=== PATIENT | female | born 1990 | race Two or more races ===

== ENCOUNTER 2019-12-02 14:32 | Outpatient (REF) | payer MEDICAID, SELFPAY ==
[2019-12-02 15:36] LABS: MANUAL DIFF FLAG NO
[2019-12-02 15:39] LABS: Basophils Percent Auto 0.7 % (0-2); Eosinophils Absolute Auto 0.1 X10*3/uL (0.0-0.4); Eosinophils Percent Auto 0.8 % (0-4); Hematocrit 38.7 % (37-47); Hemoglobin 12.5 g/dl (12.0-16.0); Imm Gran Abs Auto 0.02 X10*3/uL (0.00-0.03); Imm Gran Pct Auto 0.3 % (0.0-0.4); Lymphocytes Absolute Auto 2.2 X10*3/uL (1.2-4.9); Lymphocytes Percent Auto 36.6 % (20-40); Mean Corpuscular HGB Conc 32.3 g/dl (31.0-35.0); Mean Corpuscular Hemoglobin 27.7 pg (27.0-33.0); Mean Corpuscular Volume 85.8 fL (80-98); Mean Platelet Volume 11.5 fL (9.4-12.3); Monocytes Absolute Auto 0.4 X10*3/uL (0.1-1.2); Monocytes Percent Auto 6.8 % (2-11); Neutrophils Absolute Auto 3.3 X10*3/uL (2.0-8.3); Neutrophils Percent Auto 54.8 % (45-73); Platelet Count 267 X10*3/uL (160-400); Red Blood Count 4.51 X10*6/uL (4.20-5.50); Red Cell Distribution Width 13.3 % (11.0-16.0)
[2019-12-02 16:01] LABS: Alanine Aminotransferase 13 U/L (0-31); Albumin Level 4.6 g/dL (3.5-5.0); Alkaline Phosphatase 61 U/L (39-117); Anion Gap 12 (12-20); Aspartate Amino Transferase 19 U/L (5-31); Bilirubin Total 0.5 mg/dL (0.0-1.0); Blood Urea Nitrogen 9 mg/dL (9-16); Calcium 9.3 mg/dL (8.4-10.2); Carbon Dioxide 26 mmol/L (22-29); Chloride 104 mmol/L (96-108); Cholesterol 163 mg/dL; Estimated Glomerular Filt Rate > 60; Glucose Random 82 mg/dL (60-115); HDL Cholesterol 51 mg/dL; LDL Cholesterol Calculated 103 mg/dl; Potassium 3.8 mmol/l (3.3-5.1); Sodium 138 mmol/L (135-145); Total Protein 7.5 g/dL (6.5-8.0); Triglycerides 48 mg/dL
[2019-12-02 16:22] LABS: Ferritin 24 ng/mL (10-122); Thyroid Stimulating Hormone 1.21 mIU/mL (0.32-4.0)
[2019-12-03 06:16] LABS: Lutenizing Hormone 12.7 mIU/mL; Prolactin 3.2 ng/mL
[2019-12-03 08:23] LABS: Estimated Average Glucose 103 mg/dL; Hemoglobin A1c % 5.2 %
[2019-12-06 23:02] LABS: Estradiol Free 1.15 pg/mL; Estradiol, Ultrasensitive 50 pg/mL
[2019-12-07 13:31] LABS: Progesterone <0.1 ng/mL; Testosterone, Total 50 ng/dL (2-45)
== END 2019-12-02 14:33 | disposition home or self-care (01) ==
LOC: HO.LAB 14:32
PROVIDERS: PCP Internal Medicine; Visit Provider Internal Medicine
DX: F12.288 Cannabis dependence with other cannabis-induced disorder (principal); F41.8 Other specified anxiety disorders; M54.2 Cervicalgia; N93.8 Other specified abnormal uterine and vaginal bleeding; R87.619 Unspecified abnormal cytological findings in specimens from cervix uteri
CPT/HCPCS: 36415; 80053; 80061; 82670; 82728; 83001; 83002; 83036; 84144; 84146; 84402; 84403; 84443; 85025

== ENCOUNTER 2020-05-05 10:58 | Outpatient (REF) | payer MEDICAID, SELFPAY ==
[2020-05-05 13:33] LABS: Hematocrit 35.3 % (37-47); Hemoglobin 11.7 g/dl (12.0-16.0); Mean Corpuscular HGB Conc 33.1 g/dl (31.0-35.0); Mean Corpuscular Hemoglobin 28.2 pg (27.0-33.0); Mean Corpuscular Volume 85.1 fL (80-98); Mean Platelet Volume 11.3 fL (9.4-12.3); Platelet Count 267 X10*3/uL (160-400); Red Blood Count 4.15 X10*6/uL (4.20-5.50); Red Cell Distribution Width 13.6 % (11.0-16.0); White Blood Count 4.9 X10*3/uL (4.8-10.8)
[2020-05-05 14:26] LABS: HCG Quantitative < 2 mIU/mL; Thyroid Stimulating Hormone 1.08 uIU/mL (0.32-4.0)
[2020-05-06 08:09] LABS: Syphilis Screen Nonreactive (Nonreactive)
[2020-05-06 08:23] LABS: HIV AB/AG Nonreactive (Nonreactive); HIV Num 1 0.08 S/CO (0.00-0.99)
[2020-05-06 08:41] LABS: ~HepC Num1 0.13 S/CO (0.00-0.79); ~Hepatitis C Antibody Nonreactive (Nonreactive)
[2020-05-06 09:05] LABS: BV Int Neg Control Negative (Negative); BV Int Pos Control Positive (Positive)
[2020-05-06 09:18] LABS: CT PCR NOT DETECTED (Not Detect.); NG PCR NOT DETECTED (Not Detect.)
[2020-05-06 09:47] LABS: Prolactin 5.6 ng/mL
[2020-05-06 10:32] LABS: DHEA Sulfate 210 mcg/dL (18-391)
[2020-05-10 12:36] LABS: Testosterone, Free 3.5 pg/mL (0.1-6.4); Testosterone, Total 29 ng/dL (2-45)
[2020-05-13 03:26] LABS: HPV 16 RNA NOT DETECTED (NOT DETECTED); HPV mRNA E6/E7 rflx Detected (Not Detected)
== END 2020-05-05 10:59 | disposition home or self-care (01) ==
LOC: HO.LAB 10:58
PROVIDERS: PCP Internal Medicine; Visit Provider Advanced Practice Midwife
DX: Z01.419 Encounter for gynecological examination (general) (routine) without abnormal findings (principal); R10.2 Pelvic and perineal pain; N92.6 Irregular menstruation, unspecified; Z20.2 Contact with and (suspected) exposure to infections with a predominantly sexual mode of transmission; N64.4 Mastodynia; L68.0 Hirsutism; Z85.41 Personal history of malignant neoplasm of cervix uteri
CPT/HCPCS: 36415; 82627; 83498; 84146; 84402; 84403; 84443; 84702; 85027; 86780; 86803; 87389; 87480; 87491; 87510; 87591; 87624; 87625; 87660; 88141; 88142

== ENCOUNTER 2020-05-12 11:17 | Outpatient (REF) | payer MEDICAID, SELFPAY ==
--- NOTE | ~2020-05-12 | US_ITS ---
EXAMINATION:US transvaginal, US pelvic complete CLINICAL INFORMATION: Reason for Exam R10.2 - Pelvic and perineal pain COMPARISON: No priors available. LMP: 04/12/2020 FINDINGS: UTERUS: The uterus is anteverted. Size: 6 x 3.1 x 3.9 cm. Uterine mass: There is no uterine mass. Cervix: Grossly unremarkable. Endometrium: No ultrasound evidence of endometrial lesion. endometrial thickness measures 0.5 cm ADNEXA: Normal Right ovary: Normal in size. There are ovarian follicles. Left ovary: Normal in size. There are ovarian follicles. Doppler exam: Normal Doppler flow identified in both ovaries. FREE FLUID: Trace amount of free fluid. OTHER FINDINGS: None US/US pelvic complete IMPRESSION: Normal pelvic ultrasound.
--- NOTE | ~2020-05-12 | US_ITS ---
EXAMINATION:US transvaginal, US pelvic complete CLINICAL INFORMATION: Reason for Exam R10.2 - Pelvic and perineal pain COMPARISON: No priors available. LMP: 04/12/2020 FINDINGS: UTERUS: The uterus is anteverted. Size: 6 x 3.1 x 3.9 cm. Uterine mass: There is no uterine mass. Cervix: Grossly unremarkable. Endometrium: No ultrasound evidence of endometrial lesion. endometrial thickness measures 0.5 cm ADNEXA: Normal Right ovary: Normal in size. There are ovarian follicles. Left ovary: Normal in size. There are ovarian follicles. Doppler exam: Normal Doppler flow identified in both ovaries. FREE FLUID: Trace amount of free fluid. OTHER FINDINGS: None US/US transvaginal IMPRESSION: Normal pelvic ultrasound.
== END 2020-05-12 11:18 | disposition home or self-care (01) ==
LOC: HO.US 11:17
PROVIDERS: Visit Provider Advanced Practice Midwife
DX: R10.2 Pelvic and perineal pain (principal)
CPT/HCPCS: 76830; 76856

== ENCOUNTER → 2020-05-14 09:13 | Outpatient (BNVA) | payer MEDICAID, SELFPAY | PROVIDERS: PCP Internal Medicine; Visit Provider Advanced Practice Midwife | DX: Z71.2 Person consulting for explanation of examination or test findings (principal); D64.9 Anemia, unspecified; R10.2 Pelvic and perineal pain | CPT/HCPCS: 99212 ==

== ENCOUNTER 2020-06-15 11:25 | Outpatient (REF) | payer MEDICAID, SELFPAY ==
[2020-06-15 12:28] LABS: MANUAL DIFF FLAG NO
[2020-06-15 12:36] LABS: Basophils Percent Auto 0.8 % (0-2); Eosinophils Absolute Auto 0.1 X10*3/uL (0.0-0.4); Eosinophils Percent Auto 2.6 % (0-4); Hemoglobin 12.4 g/dl (12.0-16.0); Lymphocytes Percent Auto 41.2 % (20-40); Mean Corpuscular HGB Conc 31.8 g/dl (31.0-35.0); Mean Corpuscular Hemoglobin 27.2 pg (27.0-33.0); Mean Corpuscular Volume 85.5 fL (80-98); Mean Platelet Volume 11.6 fL (9.4-12.3); Monocytes Absolute Auto 0.6 X10*3/uL (0.1-1.2); Monocytes Percent Auto 11.9 % (2-11); Neutrophils Absolute Auto 2.2 X10*3/uL (2.0-8.3); Neutrophils Percent Auto 43.5 % (45-73); Platelet Count 269 X10*3/uL (160-400); Red Blood Count 4.56 X10*6/uL (4.20-5.50); Red Cell Distribution Width 13.6 % (11.0-16.0)
[2020-06-15 12:37] LABS: Glucose Urine UA NEG (NEG); Leukocyte Esterase Urine NEG (NEG); Nitrite Urine NEG (NEG); PH 7.5 (5.0-8.0); Urine Blood 1+ (NEG); Urine Ketones NEG (NEG); Urine Protein NEG (NEG-TRACE)
[2020-06-15 12:38] LABS: Appearance Urine HAZY; Color Urine YELLOW
[2020-06-15 12:51] LABS: Squamous Epithelial Cell Urine 2+ /LPF; WBC Urine 0 /HPF (0-4)
[2020-06-15 13:28] LABS: Ferritin 20 ng/mL (10-122); Thyroid Stimulating Hormone 0.83 uIU/mL (0.32-4.0)
[2020-06-15 13:53] LABS: Vitamin B12 257 pg/mL (200-900)
== END 2020-06-15 11:26 | disposition home or self-care (01) ==
LOC: HO.LAB 11:25
PROVIDERS: Absent Provider Advanced Practice Midwife; PCP Internal Medicine; Visit Provider Internal Medicine
DX: D50.8 Other iron deficiency anemias (principal); R42 Dizziness and giddiness; R53.83 Other fatigue; R63.4 Abnormal weight loss
CPT/HCPCS: 36415; 81001; 82607; 82728; 84443; 85025

== ENCOUNTER 2020-06-19 08:07 | Outpatient (REF) | payer MEDICAID, SELFPAY ==
[2020-06-19 09:55] LABS: Hematocrit 37.1 % (37-47); Hemoglobin 11.8 g/dl (12.0-16.0); Mean Corpuscular HGB Conc 31.8 g/dl (31.0-35.0); Mean Corpuscular Hemoglobin 27.3 pg (27.0-33.0); Mean Corpuscular Volume 85.9 fL (80-98); Mean Platelet Volume 11.1 fL (9.4-12.3); Platelet Count 261 X10*3/uL (160-400); Red Blood Count 4.32 X10*6/uL (4.20-5.50); Red Cell Distribution Width 13.4 % (11.0-16.0); White Blood Count 4.8 X10*3/uL (4.8-10.8)
== END 2020-06-19 08:08 | disposition home or self-care (01) ==
LOC: HO.LAB 08:07
PROVIDERS: PCP Internal Medicine; Visit Provider Advanced Practice Midwife
DX: N93.9 Abnormal uterine and vaginal bleeding, unspecified (principal); Z30.013 Encounter for initial prescription of injectable contraceptive
CPT/HCPCS: 36415; 81025; 85027; 96372; 99212; J1050

== ENCOUNTER → 2020-09-14 13:00 | Outpatient (BNVA) | payer MEDICAID, SELFPAY | PROVIDERS: PCP Internal Medicine; Visit Provider Advanced Practice Midwife | DX: Z30.42 Encounter for surveillance of injectable contraceptive (principal) | CPT/HCPCS: 96372; 99211 ==

== ENCOUNTER 2020-09-17 13:37 | Emergency (ER) | payer MEDICAID, SELFPAY ==
--- NOTE | ~2020-09-17 | US_ITS ---
EXAMINATION: US VENOUS WITH DOPPLER UPPER EXTREMITY, RIGHT CLINICAL INFORMATION: Swelling and pain. COMPARISON: None TECHNIQUE: Ultrasound of the upper extremity is performed using compression sonography and color and pulse Doppler flow with assessment of augmentation of flow. There is also imaging and Doppler assessment of the jugular and subclavian veins. Spectral analysis with color-flow imaging is performed. FINDINGS: Respiratory variation, normal compression, and augmented flow are noted throughout the upper extremity including the axillary, brachial, cubital, and radial and ulnar veins. There is normal flow in the internal jugular and subclavian veins. There is no visible deep or superficial thrombophlebitis. If the patient's symptoms progress, a followup ultrasound in 5 -7 days might be of value to exclude proximal propagation from a nonvisualized distal arm vein. US/US venous duplex UE RT IMPRESSION: No DVT demonstrated in the right upper extremity.
[2020-09-17 13:51] VITALS: BP 121/68; PULSE 83; RESP 16; TEMP 36.6; O2SAT 98; BMI 25.0
--- NOTE | 2020-09-17 15:02 | ED_ITS ---
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 Also c/o right upper shoulder pain with no injury or trauma. No radiation pain. No numbness or tingling. No headache or neck pain or chest pain. Related Data Previous Rx's Medication Instructions Recorded vitamin with calcium 1 tab PO DAILY #30 tab 05/14/20 no.72-iron 27 mg-folic acid 1 mg tablet ( Vitamins Plus Low Iron) medroxyprogesterone 150 mg/mL 150 mg IM [id number] #1 ml 06/19/20 intramuscular suspension (Depo-Provera) cyclobenzaprine 10 mg tablet 10 mg PO TID PRN #10 tab 09/17/20 naproxen 500 mg tablet 500 mg PO BID PRN #20 tab 09/17/20 Allergies Allergy/AdvReac Type Severity Reaction Status Date / Time No Known Allergies Allergy Verified 06/19/20 08:28 Review of Systems Review of Systems: Yes all other systems are reviewed and are negative Constitutional: Constitutional: Reports no additional constitutional complaints, Denies body ache(s), Denies chills, Denies fever(s), Denies headache(s) and Denies weakness Eyes: Eyes: Reports no additional eye complaints and Denies change in vision ENT: Reports system reviewed and no additional complaints, except as documented, Denies dizziness, Denies headache(s), Denies nasal congestion, Denies nasal discharge and Denies neck pain Cardiovascular: Cardiovascular: Reports no additional cardiovascular complaints, Denies chest pain, Denies leg edema and Denies dyspnea Respiratory: Respiratory: Reports no additional respiratory complaints, Denies cough and Denies dyspnea Gastrointestinal: Gastrointestinal: Reports no additional gastrointestinal complaints, Denies abdominal pain, Denies diarrhea, Denies nausea and Denies vomiting Genitourinary: Genitourinary: Reports no additional female genitourinary comp laints and Denies urinary incontinence Musculoskeletal: Musculoskeletal: Reports no additional musculoskeletal complaints, Denies back pain, Denies arthralgias, Denies joint swelling, Denies neck pain, Denies numbness and Denies tingling Integumentary/Breasts: Skin/Breast: Reports system reviewed and no additional complaints, except as docu, Reports swelling and Denies rash Neurologic: Reports system reviewed and no additional complaints, except as documented, Denies Abnormal speech present, Denies dizziness, Denies headache(s), Denies numbness, Denies tingling and Denies weakness PMFSH Past Medical History Attestation statement: The following information was validated with the patient. Source: old records reviewed and nursing notes reviewed Medical History Cervical cancer Family History Family History Maternal Uncle FH: kidney cancer Social History Social History Alcohol intake: never Substance Use Type: Marijuana Advance Directives: No Advance Directives Information Provided: No Patient : No Gender identity: female Physical Exam Vital Signs: Vital Signs: Last Vital Signs Temp 98 F 09/17/20 13:51 Pulse 83 09/17/20 13:51 Resp 16 09/17/20 13:51 BP 121/68 09/17/20 13:51 Pulse Ox 98 09/17/20 13:51 Body Mass Index 25.0 Const: General: cooperative, healthy appearing, comfortable and no acute distress Orientation/consciousness: patient oriented x3 Limitations: no limitations HENMT: Head: Yes normal to inspection Ears: hearing grossly normal bilaterally General nose exam: Normal external nose present Face and sinus: Yes normal facial exam Mouth: Normal oral and palatal mucosa present Throat: Yes posterior oropharynx normal Eyes: General: appearance normal, both eyes and all related structures Pupils: Equal, round and reactive pupils present Neck: Other: Tenderness over the right trapezius with no cervical midline tenderness, step-offs or deformities. Palpable muscle spasm noted Neck: Yes normal visual inspection Chest: Chest palpation & inspection: normal inspection of the chest Resp: Effort & Inspection: normal respiratory effort Auscultation: clear to auscultation bilaterally Cardio: Rate: regular rate Rhythm: regular rhythm Peripheral pulses: Peripheral pulses 2+ throughout GI: Inspection: Yes normal to inspection Palpation (GI): Soft to palpation and nontender Auscultation: normal bowel sounds Back/Spine/Pelvis: Thoracic/Lumbar Spine: thoracic and lumbar spine normal to inspection Skin: General skin exam: no rashes or lesions noted Neuro: General: patient oriented x3, no focal motor deficits and normal sensation to monofilament Cranial nerves: Yes Equal, round and reactive pupils present Cognition (Neuro): normal cognition Speech: No Abnormal speech present Gait exam (Neuro): Normal gait present Motor exam (neuro): 5/5 motor strength present throughout Extrem: Other: On the volar aspect of the right forearm there are 2 areas of swelling which are firm, nontender. No associated redness or fluctuance Mild swelling noted. Distal pulses palpated General: Yes normal to inspection Course Course Course Narrative: 30-year-old female here with right trapezius tenderness with muscle spasm. Likely muscle strain. Also 2 areas of swelling over the right forearm. Local swelling. Question lipoma. Patient concerned for DVT. Will check US. 170-ultrasound negative for DVT. Exam is more consistent with lipomas over the forearm. Will have her follow up with surgery as desired for further eval. Reviewed worrisome signs and symptoms of when to return to the emergency department. Comfortable discharge home. MDM - Extremity (Nontraumatic) Medical Records Attestation: I reviewed the patient's medical records. Lab Data Attestation: I reviewed the patient's lab results. Imaging Data UE US: Attestation: I personally reviewed and interpreted this imaging study as follows: Radiologist's impression: FINDINGS: Respiratory variation, normal compression, and augmented flow are noted throughout the upper extremity including the axillary, brachial, cubital, and radial and ulnar veins. There is normal flow in the internal jugular and subclavian veins. There is no visible deep or superficial thrombophlebitis. If the patient's symptoms progress, a followup ultrasound in 5 -7 days might be of value to exclude proximal propagation from a nonvisualized distal arm vein. US/US venous duplex UE RT IMPRESSION: No DVT demonstrated in the right upper extremity. Discharge Plan Discharge Clinical Impression: Lipoma, Muscle spasm Patient Disposition: Home, Self-Care Instructions: Muscle Spasm (ED), Lipoma (ED) Additional Instructions: Heat to the area gentle stretching Your ultrasound shows no blood clots Prescriptions: New cyclobenzaprine 10 mg tablet 10 mg PO TID PRN (Reason: muscle spasm) Qty: 10 RF: 0 naproxen 500 mg tablet 500 mg PO BID PRN (Reason: pain) Qty: 20 RF: 0 No Action medroxyprogesterone [Depo-Provera] 150 mg/mL suspension 150 mg IM [id number] Qty: 1 RF: 3 Vitamin Plus Low Iron 27 mg iron- 1 mg tablet 1 tab PO DAILY Qty: 30 RF: 11 Referrals: Mahnaz Villar MD [Primary Care Provider] - 2 days Fredrick Shoemaker MD [Physician] - 2 days Stand Alone Forms: Work/School Release Interventions: ED Discharge Assessment Last Done: 09/17/20 17:19 Discharge Date/Time: 09/17/20 17:20
[2020-09-17] MEDS: Ibuprofen 600 MG TABLET PO (15:33)
[2020-09-17] MEDS: Cyclobenzaprine HCl 10 MG TABLET PO (15:33)
== END 2020-09-17 17:20 | disposition home or self-care (01) ==
PROVIDERS: Emergency Provider Emergency Medicine; PCP Internal Medicine
DX: M25.511 Pain in right shoulder (principal); D17.21 Benign lipomatous neoplasm of skin and subcutaneous tissue of right arm; R60.0 Localized edema; Z79.899 Other long term (current) drug therapy
CPT/HCPCS: 93971; 99283

== ENCOUNTER → 2020-10-12 15:03 | Outpatient (BNVA) | payer MEDICAID, SELFPAY | PROVIDERS: Visit Provider Advanced Practice Midwife | DX: Z30.42 Encounter for surveillance of injectable contraceptive (principal); R39.15 Urgency of urination; Z86.2 Personal history of diseases of the blood and blood-forming organs and certain disorders involving the immune mechanism | CPT/HCPCS: 99212 ==

== ENCOUNTER 2020-11-04 11:07 | Outpatient (REF) | payer MEDICAID, SELFPAY ==
[2020-11-04 13:51] LABS: Appearance Urine CLEAR; Color Urine YELLOW; Glucose Urine UA NEG (NEG); Leukocyte Esterase Urine NEG (NEG); Nitrite Urine NEG (NEG); Specific Gravity - Urine 1.015 (1.005-1.025); Urine Blood NEG (NEG); Urine Ketones NEG (NEG); Urine Protein NEG (NEG-TRACE)
[2020-11-04 14:14] LABS: Hematocrit 38.2 % (37-47); Hemoglobin 12.4 g/dl (12.0-16.0); Mean Corpuscular HGB Conc 32.5 g/dl (31.0-35.0); Mean Corpuscular Hemoglobin 27.3 pg (27.0-33.0); Mean Corpuscular Volume 84.1 fL (80-98); Mean Platelet Volume 11.1 fL (9.4-12.3); Platelet Count 340 X10*3/uL (160-400); Red Blood Count 4.54 X10*6/uL (4.20-5.50); Red Cell Distribution Width 13.8 % (11.0-16.0); White Blood Count 5.7 X10*3/uL (4.8-10.8)
[2020-11-04 14:26] LABS: HCG Quantitative < 2 mIU/mL
== END 2020-11-04 11:08 | disposition home or self-care (01) ==
LOC: HO.LAB 11:07
PROVIDERS: PCP Internal Medicine; Visit Provider Advanced Practice Midwife
DX: N91.2 Amenorrhea, unspecified (principal); R39.15 Urgency of urination; Z32.02 Encounter for pregnancy test, result negative; Z86.2 Personal history of diseases of the blood and blood-forming organs and certain disorders involving the immune mechanism
CPT/HCPCS: 36415; 81003; 81025; 84702; 85027; 99212

== ENCOUNTER 2020-11-25 14:04 | Outpatient (REF) | payer MEDICAID, SELFPAY ==
[2020-11-26 02:51] LABS: CT PCR NOT DETECTED (Not Detect.); NG PCR NOT DETECTED (Not Detect.)
[2020-11-26 10:39] LABS: BV Int Neg Control Negative (Negative); BV Int Pos Control Positive (Positive)
== END 2020-11-25 14:05 | disposition home or self-care (01) ==
LOC: HO.LAB 14:04
PROVIDERS: PCP Internal Medicine; Visit Provider Advanced Practice Midwife
DX: N92.1 Excessive and frequent menstruation with irregular cycle (principal); R87.610 Atypical squamous cells of undetermined significance on cytologic smear of cervix (ASC-US); R87.810 Cervical high risk human papillomavirus (HPV) DNA test positive; N39.41 Urge incontinence; N89.8 Other specified noninflammatory disorders of vagina; Z20.2 Contact with and (suspected) exposure to infections with a predominantly sexual mode of transmission
CPT/HCPCS: 81003; 81025; 87480; 87491; 87510; 87591; 87660; 99212

== ENCOUNTER → 2020-12-09 08:49 | Outpatient (BNVA) | payer MEDICAID, SELFPAY | PROVIDERS: Visit Provider Advanced Practice Midwife | DX: Z30.42 Encounter for surveillance of injectable contraceptive (principal) | CPT/HCPCS: 96372 ==

== ENCOUNTER 2020-12-14 22:38 | Emergency (ER) | payer MEDICAID, SELFPAY ==
--- NOTE | ~2020-12-14 | XR_ITS ---
EXAMINATION: XR ELBOW, LEFT CLINICAL INFORMATION: Pulling injury, now with pain COMPARISON: None TECHNIQUE: AP, lateral, and oblique views of the left elbow. FINDINGS: Osseous alignment is anatomic. No acute fracture is seen. Faint calcific density adjacent to the olecranon may reflect calcific tendinitis. No significant effusion. XR/XR elbow LT min 3V IMPRESSION: No acute findings.
[2020-12-14 22:41] VITALS: BP 128/89; PULSE 76; RESP 18; TEMP 36.8; O2SAT 99; BMI 26.4
--- NOTE | 2020-12-14 22:56 | ED.UPPEXIN ---
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 She denies any other injuries complaints or concerns at this time. MD complaint: injury to: left and elbow Onset (ago): hour(s) (A few hours prior to arrival) Other Extremity Injury: left: elbow Other injuries: none Place: work Severity: moderate Relieving factors: none Exacerbating factors: movement of extremity (And palpation) Context: other (Pulling mechanism injury) Associated symptoms: denies other symptoms Treatments prior to arrival: cold therapy Related Data Previous Rx's Medication Instructions Recorded vitamin with calcium 1 tab PO DAILY #30 tab 05/14/20 no.72-iron 27 mg-folic acid 1 mg tablet ( Vitamins Plus Low Iron) medroxyprogesterone 150 mg/mL 150 mg IM [id number] #1 ml 06/19/20 intramuscular suspension (Depo-Provera) cyclobenzaprine 10 mg tablet 10 mg PO TID PRN #10 tab 09/17/20 naproxen 500 mg tablet 500 mg PO BID PRN #20 tab 09/17/20 metronidazole 0.75 % vaginal gel 1 appful VAGINAL BEDTIME 5 Days 12/09/20 (Metrogel Vaginal) #70 g acetaminophen 300 mg-codeine 30 mg 1 tab PO Q8H PRN #14 tab 12/14/20 tablet cyclobenzaprine 10 mg tablet 10 mg PO Q8H PRN #14 tab 12/14/20 ibuprofen 800 mg tablet 800 mg PO Q8H PRN #14 tab 12/14/20 Allergies Allergy/AdvReac Type Severity Reaction Status Date / Time No Known Allergies Allergy Verified 11/25/20 14:17 Review of Systems Review of Systems: Constitutional : No Weight loss, No Fever, No Chills, No Night Sweats, No Fatigue, No Malaise ENT/Mouth : No Hearing loss, No Ear Pain, No Nasal Congestion, No Sinus Pain, No Hoarseness, No sore throat, No Rhinorrhea, No Swallowing Difficulty Eyes: No Eye Pain, No Swelling, No Redness, No Foreign Body, No Discharge, No Vision Changes Cardiovascular : No Chest Pain, No SOB, No Dyspnea on Exertion, No Orthopnea, No Edema, No Palpitations Respiratory : No Cough, No Sputum, No Wheezing, No Smoke Exposure, No Dyspnea Gastrointestinal : No Nausea, No Vomiting, No Diarrhea, No Constipation, No abdominal Pain, No Hematochezia, No Melena Genitourinary : no irregular bleeding, No Dysuria, No Urinary Frequency, No Hematuria, No Urinary Incontinence, No Urgency, No Flank Pain, No Urinary Flow Changes, No Hesitancy Musculoskeletal : Positive left elbow joint pain, No Myalgias, No Joint Swelling Skin : No Skin Lesions, No rash Neuro : No Weakness, No Numbness, No Paresthesias, No Loss of Consciousness, No Dizziness, No Headache Psych : No Anxiety/Panic, No Depression, No SI/HI/AH/VH, No Social Issues, Heme/Lymph: No Bruising, No Bleeding,No Lymphadenopathy Endocrine : No Polyuria, No Polydipsia, No Temperature Intolerance Yes all other systems are reviewed and are negative [facility] Past Medical History Attestation statement: The following information was validated with the patient. Medical History Cervical cancer Family History Family History Maternal Uncle FH: kidney cancer Social History Social History Alcohol intake: never Substance Use Type: Marijuana Advance Directives: No Advance Directives Information Provided: No Patient : No Gender identity: Female Physical Exam Vital Signs: Vital Signs: Last Vital Signs Temp 98.3 F 12/14/20 22:41 Pulse 76 12/14/20 22:41 Resp 18 12/14/20 22:41 BP 128/89 12/14/20 22:41 Pulse Ox 99 12/14/20 22:41 Body Mass Index 26.4 vital signs have been reviewed as normal and appeared to be correct. Blood pressure normal Heart rate normal. Respiration rate normal. Temperature normal. Oxygen saturation normal. Appearance: Alert. Oriented X3. No acute distress. Head: Normal external exam. Normocephalic. Atraumatic. Eyes: PERRLA. EOMI. Conjunctiva and sclera normal. Eyelids normal. ENT: Pharynx normal. Uvula midline. Moist mucous membranes. Neck: Normal inspection. Neck supple. FROM. CVS: Normal heart rate and rhythm. Respiratory: No respiratory distress. Painless inspiration. Skin: Skin warm and dry. Normal skin color. Normal skin turgor. No rashes/lesions/lacerations noted. Extremities: Patient with tenderness up patient to left elbow at the posterior olecranon aspect of the elbow with mild soft tissue swelling. Patient has full range of motion. No obvious deformities. No obvious ligamentous or tendon injury. No upper extremity edema noted. Otherwise all other Extremities exhibit normal range of motion and nontender. Neuro: Oriented X 3. No motor deficit. No sensory deficit. Reflexes normal. Normal steady gait. No focal neuro deficits noted. Vascular: + radial pulses Normal cap refill. 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 She denies any other injuries complaints or concerns at this time. Plan: Xray of left elbow if negative will place in a sling and treat symptomatic and instruct to follow up with Orthopedic and work connection for her employer. Patient understands agrees with this plan. MDM - Extremity Injury (Upper) Medical Records Attestation: I reviewed the patient's medical records. Imaging Data X-ray of left elbow: Attestation: I personally reviewed and interpreted this imaging study as follows: Radiologist's impression: FINDINGS: Osseous alignment is anatomic. No acute fracture is seen. Faint calcific density adjacent to the olecranon may reflect calcific tendinitis. No significant effusion.? XR/XR elbow LT min 3V IMPRESSION: No acute findings. Procedures Orthopedic Splinting/Casting Injury #1: Side: left Upper Extremity Injury Location: elbow Upper Extremity Immobilizer: sling/shoulder immobilizer Discharge Plan Discharge Clinical Impression: Work related injury, Sprain of elbow, left Patient Disposition: Home, Self-Care Instructions: How to Use a Sling (ED), Elbow Sprain (ED), Return to Work Instructions (ED) Prescriptions: New cyclobenzaprine 10 mg tablet 10 mg PO Q8H PRN (Reason: Muscle spasm) Qty: 14 RF: 0 ibuprofen 800 mg tablet 800 mg PO Q8H PRN (Reason: pain) Qty: 14 RF: 0 acetaminophen-codeine 300-30 mg tablet 1 tab PO Q8H PRN (Reason: pain) Qty: 14 RF: 0 No Action cyclobenzaprine 10 mg tablet 10 mg PO TID PRN (Reason: muscle spasm) Qty: 10 RF: 0 naproxen 500 mg tablet 500 mg PO BID PRN (Reason: pain) Qty: 20 RF: 0 medroxyprogesterone [Depo-Provera] 150 mg/mL suspension 150 mg IM [id number] Qty: 1 RF: 3 Vitamin Plus Low Iron 27 mg iron- 1 mg tablet 1 tab PO DAILY Qty: 30 RF: 11 metronidazole [Metrogel Vaginal] 0.75 % gel 1 appful vaginal BEDTIME 5 Days Qty: 70 RF: 0 Referrals: Mahnaz Villar MD [Primary Care Provider] - 2 days Clyde Quezada MD [Physician] - 2 days (Call to make a follow-up appointment within the next 1-2 weeks if symptoms persist. Llame para hacer naveen love de seguimiento dentro de las pr?ximas 1-2 semanas si los s?ntomas persisten) Stand Alone Forms: Work/School Release Print Language: Romanian
[2020-12-14] MEDS: Ibuprofen 800 MG TABLET PO (23:44)
== END 2020-12-15 00:03 | disposition home or self-care (01) ==
PROVIDERS: Emergency Provider Internal Medicine; PCP Internal Medicine
DX: S53.402A Unspecified sprain of left elbow, initial encounter (principal); X50.0XXA Overexertion from strenuous movement or load, initial encounter; Y93.89 Activity, other specified; Y92.9 Unspecified place or not applicable; Y99.0 Civilian activity done for income or pay
CPT/HCPCS: 73080; 99283; 99284

== ENCOUNTER 2020-12-24 10:06 | Outpatient (REF) | payer MEDICAID, SELFPAY | END 2020-12-24 10:07 | disposition home or self-care (01) | LOC: HO.LAB 10:06 | PROVIDERS: PCP Internal Medicine; Visit Provider Obstetrics & Gynecology | DX: R87.610 Atypical squamous cells of undetermined significance on cytologic smear of cervix (ASC-US) (principal); R87.810 Cervical high risk human papillomavirus (HPV) DNA test positive | CPT/HCPCS: 57456; 88305; 88312; 88313; 88341; 88342; 88360 ==

== ENCOUNTER 2021-01-12 10:44 | Outpatient (REF) | payer MEDICAID, SELFPAY ==
[2021-01-14 22:06] LABS: TS Negative Control Passed; TS Panel A 0; TS Panel B 0; TS Positive Control Passed; TSpotTB Negative (Negative)
== END 2021-01-12 10:45 | disposition home or self-care (01) ==
LOC: HO.10HDL 10:44
PROVIDERS: Visit Provider Internal Medicine
DX: Z11.1 Encounter for screening for respiratory tuberculosis (principal); G56.01 Carpal tunnel syndrome, right upper limb; R87.619 Unspecified abnormal cytological findings in specimens from cervix uteri
CPT/HCPCS: 36415; 86481

== ENCOUNTER → 2021-02-09 10:34 | Outpatient (BNVA) | payer MEDICAID, SELFPAY | PROVIDERS: PCP Internal Medicine; Visit Provider Obstetrics & Gynecology | DX: N87.1 Moderate cervical dysplasia (principal) | CPT/HCPCS: 99212 ==

== ENCOUNTER 2021-02-26 05:59 | Day surgery (SDC) | payer MEDICAID, SELFPAY ==
[2021-02-16 12:48] VITALS: BMI 26.2
--- NOTE | 2021-02-25 11:58 | HO.ANESPROP2 ---
Documented by User: Nilsa Villarreal NP 02/25/21 11:58 HPI - Anesthesia Eval Consult details Narrative: 31yo F for Cone LEEP with post ECC PMFSH Active Problems Active Problems: All Active Problems (Updated 02/09/21 @ 11:18 by Francis Tong MD) KENDRICK II (cervical intraepithelial neoplasia II) (Acute) ASCUS with positive high risk HPV cervical (Acute) Amenorrhea due to Depo Provera (Acute) Hx of iron deficiency anemia (Acute) Urinary urgency (Acute) Depot contraception (Acute) Anemia (Acute) Hirsutism (Acute) Breast pain, left (Acute) Irregular menses (Acute) Pelvic pain in female (Acute) Past Medical History Medical History Cervical cancer Family History Family History Maternal Uncle FH: kidney cancer Surgical History Surgical History H/O LEEP History of lumpectomy of left breast Social History Social History Alcohol intake: never Patient Tobacco Use Status: Tobacco use Unknown Use of substances other than those prescribed or required for medical reasons: Yes Substance Use Type: Marijuana Advance Directives Information Provided: Yes (informational brochure mailed) Advance Directives on File: No Gender identity: Female Meds Allergies Allergy/AdvReac Type Severity Reaction Status Date / Time No Known Allergies Allergy Verified 02/26/21 06:22 Exam Exam Date and Time: February 25, 2021 1158 Height,Weight and Vital Signs: Height 5 ft Weight 60.781 kg Assessment and Plan Assessment Anesthesia Assessment: Chart Reviewed Documented by User: Jorge Luis Huffman 02/26/21 07:33 PMFSH Past Medical History Medical History Cervical cancer Family History Family History Maternal Uncle FH: kidney cancer Family history of problems with anesthesia: No Surgical History Surgical History H/O LEEP History of lumpectomy of left breast History of Problems with Anesthesia: No Social History Social History Alcohol intake: never Patient Tobacco Use Status: Tobacco use Unknown Use of substances other than those prescribed or required for medical reasons: Yes Substance Use Type: Marijuana Advance Directives Information Provided: Yes (informational brochure mailed) Advance Directives on File: No Gender identity: Female Meds Allergies Allergy/AdvReac Type Severity Reaction Status Date / Time No Known Allergies Allergy Verified 02/26/21 06:22 Exam Airway Mallampati Class: II TM Dist: >3cm Neck ROM: Full Loose/Missing/Broken Teeth: Yes Heart: rrr Lungs: bl breath sounds Assessment and Plan Final Anesthetic Review Family History of Problems with Anesthesia: No History of Problems with Anesthesia: No NPO: Yes Patient Risk: Intermediate Procedure Risk: Intermediate Anesthetic Plan Anesthetic Plan: GA Disposition: Standard PACU
[2021-02-26 06:20] VITALS: BP 119/79; PULSE 84; RESP 16; TEMP 36.8; O2SAT 100
[2021-02-26 06:24] LABS: UPreg QC Valid YES; Urine Pregnancy NEGATIVE (NEGATIVE)
[2021-02-26] MEDS: Lactated Ringers 1,000 ML 100 ML IVCONT (06:28)
--- NOTE | 2021-02-26 07:34 | MHC.SHP ---
Pre-Procedural Eval Section A Date of Service: 02/26/21 The patient is an INPATIENT: No Changes since office visit: No Cold of Flu in the past 2 weeks, No New Medical Problems, No Changes in Medication and No Patient answered all questions The History & Physical has been completed within 30 days and I have reviewed it.: Yes Section B Chief Complaint: dysplasia Allergies: Allergies Allergy/AdvReac Type Severity Reaction Status Date / Time No Known Allergies Allergy Verified 02/26/21 06:22 Plan Diagnosis/Plan: Unchanged I have reviewed the history and physical and performed a pertinent physical examination on my patient. No changes have occurred unless specified.
--- NOTE | 2021-02-26 08:04 | PM.OP ---
Brief Operative Note Date of Service: 02/26/21 Pre-op diagnosis: KENDRICK 2 on ECC Procedure: LEEP CONE with post CONE ECC Surgeon: Francis Tong MD Anesthesia: local and other (Paracervical block) Was an [place] Erector Helper used for this Procedure?: No Estimated blood loss (mL): 0 Pathology: other (Cervical cone, Endocx, Post cone ECC) Condition: stable Disposition: other (Home)
--- NOTE | 2021-02-26 08:05 | W.PM.OPN ---
Operative Note Operative Note Date of Service: 02/26/21 Narrative: Preop diagnosis: KENDRICK 2 on ECC Operation: LEEP Cone with post cone ECC Post op diagnosis: same Anesthesia: paracervical block, IV sedation Complications: none Pathology: Cervical cone with endocervix & post cone RCC QBL: minimal Procedure: The patient was put in the dorsal lithotomy position, was prepped and draped in the usual sterile fashion. A sterile speculum was inserted inside the patient vagina. Using Lugol solution the cervix with Dyed with Lugol solution to identifiy the abnormal demarcating line. 10 cc of Marcaine0.5% with epinephrine were given at 2,4 , 8, and 10 o'clock. Using a medium-size loop wire, the cervical cone was excised followed by the endocervix, post cone ECC was done afterwards. Hemostasis was assured using cautery and Monsel solution. All instruments were taken out of the patient's vaginal cavity. the patient tolerated the procedure well and was discharged home with the following instructions: call if temperature is above 100.4, vaginal bleeding, abdominal pain or nausea or vomiting. Follow-up in the office in 2 weeks for postop visit
[2021-02-26 08:11] VITALS: BP 111/62; PULSE 106; RESP 14; TEMP 36.5; O2SAT 100
[2021-02-26 08:16] VITALS: BP 120/67; PULSE 87; RESP 14; O2SAT 100
[2021-02-26 08:21] VITALS: BP 130/67; PULSE 77; RESP 16; O2SAT 100
[2021-02-26 08:26] VITALS: BP 126/75; PULSE 80; RESP 16; TEMP 36.6; O2SAT 100
[2021-02-26 08:41] VITALS: BP 126/71; PULSE 72; RESP 17; TEMP 36.6; O2SAT 100
== END 2021-02-26 09:10 | disposition home or self-care (01) ==
PROVIDERS: Nurse Practitioner; PCP Internal Medicine; Visit Provider Obstetrics & Gynecology
PROC: 0UBC7ZZ Excision of Cervix, Via Natural or Artificial Opening (ICD-10-PCS; CPT 57522; principal; 2021-02-26 07:30)
DX: N87.1 Moderate cervical dysplasia (principal); Z85.41 Personal history of malignant neoplasm of cervix uteri; F12.90 Cannabis use, unspecified, uncomplicated
CPT/HCPCS: 57522; 81025; 88305; 88307; 88342; J1100; J2250; J2405; J3010

== ENCOUNTER → 2021-03-11 14:08 | Outpatient (BNVA) | payer MEDICAID, SELFPAY | PROVIDERS: Visit Provider Obstetrics & Gynecology ==

== ENCOUNTER → 2021-05-07 15:02 | Outpatient (BNVA) | payer MEDICAID, SELFPAY | PROVIDERS: Visit Provider Advanced Practice Midwife | DX: Z30.09 Encounter for other general counseling and advice on contraception (principal) | CPT/HCPCS: 81025; 99212 ==

== ENCOUNTER → 2021-05-18 08:57 | Outpatient (BNVA) | payer MEDICAID, SELFPAY | PROVIDERS: Visit Provider Advanced Practice Midwife | DX: Z30.42 Encounter for surveillance of injectable contraceptive (principal) | CPT/HCPCS: 96372; 99211 ==

== ENCOUNTER 2021-06-16 11:06 | Outpatient (REF) | payer MEDICAID, SELFPAY ==
[2021-06-16 12:57] LABS: MANUAL DIFF FLAG NO
[2021-06-16 13:10] LABS: Basophils Percent Auto 0.7 % (0-2); Eosinophils Absolute Auto 0.1 X10*3/uL (0.0-0.4); Eosinophils Percent Auto 1.8 % (0-4); Hemoglobin 12.1 g/dl (12.0-16.0); Imm Gran Abs Auto 0.01 X10*3/uL (0.00-0.03); Imm Gran Pct Auto 0.2 % (0.0-0.4); Lymphocytes Absolute Auto 2.1 X10*3/uL (1.2-4.9); Lymphocytes Percent Auto 35.2 % (20-40); Mean Corpuscular HGB Conc 31.8 g/dl (31.0-35.0); Mean Corpuscular Hemoglobin 26.5 pg (27.0-33.0); Mean Corpuscular Volume 83.2 fL (80.0-98.0); Mean Platelet Volume 10.5 fL (9.4-12.3); Monocytes Absolute Auto 0.6 X10*3/uL (0.1-1.2); Monocytes Percent Auto 9.3 % (2-11); Neutrophils Absolute Auto 3.2 x10*3/uL (2.0-8.3); Neutrophils Percent Auto 52.8 % (45-73); Platelet Count 336 X10*3/uL (160-400); Red Blood Count 4.57 X10*6/uL (4.20-5.50); Red Cell Distribution Width 13.3 % (11.0-16.0); White Blood Count 6.1 X10*3/uL (4.8-10.8)
[2021-06-16 13:33] LABS: Thyroid Stimulating Hormone 1.88 uIU/mL (0.32-4.0)
== END 2021-06-16 11:07 | disposition home or self-care (01) ==
LOC: HO.10HDL 11:06
PROVIDERS: Visit Provider Internal Medicine
DX: D50.8 Other iron deficiency anemias (principal); D51.9 Vitamin B12 deficiency anemia, unspecified; K59.00 Constipation, unspecified; N87.1 Moderate cervical dysplasia
CPT/HCPCS: 36415; 84443; 85025

== ENCOUNTER → 2021-08-09 08:51 | Outpatient (BNVA) | payer MEDICAID, SELFPAY | PROVIDERS: Visit Provider Advanced Practice Midwife | DX: Z30.42 Encounter for surveillance of injectable contraceptive (principal) | CPT/HCPCS: 96372; 99211 ==

== ENCOUNTER 2021-09-01 03:38 | Emergency (ER) | payer MEDICAID, SELFPAY ==
[2021-09-01 04:21] VITALS: BP 136/84; PULSE 109; RESP 16; TEMP 37.7; O2SAT 100; BMI 37.3
== END 2021-09-01 08:23 | disposition left against medical advice (07) ==
LOC: HO.ED 07:47
PROVIDERS: Emergency Provider Emergency Medicine
DX: H92.01 Otalgia, right ear (principal)
CPT/HCPCS: 99281

== ENCOUNTER 2021-09-01 18:31 | Emergency (ER) | payer MEDICAID, SELFPAY ==
--- NOTE | ~2021-09-01 | CT_ITS ---
EXAMINATION: CT MASTOID CLINICAL INFORMATION: Right swelling, redness COMPARISON: None TECHNIQUE: No intravenous contrast was utilized. Multidetector helical imaging was performed through the bilateral temporal bones. Coronal and sagittal reformatted images were created. DOSE LOWERING TECHNIQUES: This CT examination was performed using dose optimization techniques as appropriate, variously including the following: - Automated exposure control - Adjustment of mA and/or kV according to patient size (this includes techniques or standardized protocols for targeted exams were dose is matched to indication/reason for exam; i.e. extremities or head) - Use of iterative reconstruction technique DLP: 289 mGy-cm FINDINGS: There is a lateral right facial subcutaneous edema overlying the temporal bone and zygoma. No discrete fluid collection is seen in the soft tissues. There is asymmetric, partial opacification of right-sided petrous apex air cells, with no associated osseous destruction identified. Right mastoid air cells and middle ear cavity are otherwise well-aerated. There is suggestion of some thickening along the margin of the right external auditory canal. Left mastoid air cells and middle ear cavity are well aerated. Bilateral temporomandibular joints appear unremarkable. Included portions of the paranasal sinuses are well-aerated. Included portions of the brain parenchyma appear grossly unremarkable. CT/CT mastoid IMPRESSION: Partial opacification of the right petrous apex air cells suspicious for effusion, with no associated osseous destruction seen. Mastoid air cells are otherwise well-aerated. Lateral right facial subcutaneous edema noted, without discrete fluid collection.
[2021-09-01 20:18] VITALS: BP 123/68; PULSE 102; RESP 18; TEMP 36.9; O2SAT 100; BMI 37.3
[2021-09-01 21:21] VITALS: BP 111/66; PULSE 74; RESP 16; TEMP 36.6; O2SAT 98
--- NOTE | 2021-09-01 21:32 | ED_ITS ---
HPI - Skin/Abscess/Foreign Bdy General Chief complaint: Skin/Abscess/Foreign Body Stated complaint: lump on right side of head,painful Time Seen by Provider: 09/01/21 20:54 Source: patient and japanese interpreter Mode of arrival: ambulatory Limitations: language barrier History of Present Illness HPI narrative: 31-year-old female who is healthy presents with redness and swelling to an area just above her ear for the last 3 days. No ear pain, ear drainage, hearing loss. No URI symptoms. No fevers or chills. Related Data Previous Rx's Medication Instructions Recorded medroxyprogesterone 150 mg/mL 150 mg IM [id number] #1 mL 05/07/21 intramuscular suspension (Depo-Provera) amoxicillin 875 mg-potassium 1 tab PO BID #14 tabs 09/01/21 clavulanate 125 mg tablet ibuprofen 600 mg tablet 600 mg PO QID PRN pain #20 tabs 09/01/21 Allergies Allergy/AdvReac Type Severity Reaction Status Date / Time No Known Allergies Allergy Verified 09/01/21 20:18 Review of Systems Review of Systems: Yes all other systems are reviewed and are negative Constitutional: Constitutional: Reports no additional constitutional complaints, Denies body ache(s), Denies chills, Denies fever(s), Denies headache(s) and Denies weakness Eyes: Eyes: Reports no additional eye complaints and Denies change in vision ENT: Reports system reviewed and no additional complaints, except as documented, Denies dizziness, Denies headache(s), Denies nasal congestion, Denies nasal discharge and Denies neck pain Cardiovascular: Cardiovascular: Reports no additional cardiovascular complaints, Denies chest pain, Denies leg edema and Denies dyspnea Respiratory: Respiratory: Reports no additional respiratory complaints, Denies cough and Denies dyspnea Gastrointestinal: Gastrointestinal: Reports no additional gastrointestinal complaints, Denies abdominal pain, Denies diarrhea, Denies nausea and Denies vomiting Genitourinary: Genitourinary: Reports no additional female genitourinary complaints and Denies urinary incontinence Musculoskeletal: Musculoskeletal: Reports no additional musculoskeletal complaints, Denies back pain, Denies arthralgias, Denies joint swelling, Denies neck pain, Denies numbness and Denies tingling Integumentary/Breasts: Skin/Breast: Reports system reviewed and no additional complaints, except as docu, Reports swelling, Reports erythema and Denies rash Neurologic: Reports system reviewed and no additional complaints, except as documented, Denies Abnormal speech present, Denies dizziness, Denies headache(s), Denies numbness, Denies tingling and Denies weakness PMFSH Past Medical History Attestation statement: The following information was validated with the patient. Source: old records reviewed and nursing notes reviewed Medical History Cervical cancer Surgical History H/O LEEP History of lumpectomy of left breast Family History Family History Maternal Uncle FH: kidney cancer Social History Social History Alcohol intake: never Patient Tobacco Use Status: Tobacco use Unknown Substance Use Type: Marijuana Advance Directives: No Gender identity: Female Physical Exam Vital Signs: Vital Signs: Last Vital Signs Temp 98.2 F 09/02/21 00:00 Pulse 92 09/02/21 00:00 Resp 18 09/02/21 00:00 BP 134/73 09/02/21 00:00 Pulse Ox 98 09/02/21 00:00 O2 Del Method 09/02/21 00:00 BMI result Body Mass Index 37.3 Const: General: cooperative, healthy appearing, comfortable and no acute distress Orientation/consciousness: patient oriented x3 Limitations: no limitations HEENT: Head: Yes normal to inspection Head images: 1. Indurated, swollen, warm, tender area with no palpable fluctuance. No drainage or pointing noted. There is some redness and warmth that extends behind the ear Ears: hearing grossly normal bilaterally and TM's normal bilaterally General nose exam: Normal external nose present Face and sinus: Yes normal facial exam Mouth: Normal oral and palatal mucosa present Throat: Yes posterior oropharynx normal Eyes: General: appearance normal, both eyes and all related structures Pupils: Equal, round and reactive pupils present Neck: Neck: Yes normal visual inspection Chest: Chest palpation & inspection: normal inspection of the chest Resp: Effort & Inspection: normal respiratory effort Auscultation: clear to auscultation bilaterally Cardio: Rate: regular rate Rhythm: regular rhythm Peripheral pulses: Peripheral pulses 2+ throughout GI: Inspection: Yes normal to inspection Palpation (GI): Soft to palpation and nontender Auscultation: normal bowel sounds Back/Spine/Pelvis: Thoracic/Lumbar Spine: thoracic and lumbar spine normal to inspection Skin: General skin exam: no rashes or lesions noted Neuro: General: patient oriented x3, no focal motor deficits and normal sensation to monofilament Cranial nerves: Yes Equal, round and reactive pupils present Cognition (Neuro): normal cognition Speech: No Abnormal speech present Gait exam (Neuro): Normal gait present Motor exam (neuro): 5/5 motor strength present throughout Extrem: General: Yes normal to inspection Course Course Course Narrative: 1215- CT shows IMPRESSION: Partial opacification of the right petrous apex air cells suspicious for effusion, with no associated osseous destruction seen. Mastoid air cells are otherwise well-aerated. Lateral right facial subcutaneous edema noted, without discrete fluid collection. -No drainable fluid collection. No mastoiditis seen. D/w with Dr Ferro. No evidence of mastoiditis. Patient overall non toxic appearing. Afebrile. Will initiate oral antibiotics and refer to ENT for further evaluation. I reviewed worrisome signs/symptoms with patient (increasing redness/swelling, fever) and when to return to the ED. Comfortable with discharge home. MDM - Skin/Abscess/Foreign Bdy MDM Narrative Medical decision making narrative: 31-year-old female who presents with redness and swelling above her right ear for the last 3 days. On exam there does appear to be in a area that is indurated, warm, red, swollen and tender just above her right ear with some surrounding erythema. There is also some mild tenderness over the right mastoid bone. Will check CT mastoids Considered mastoiditis, cellulitis, abscess Medical Records Attestation: I reviewed the patient's medical records. Lab Data Attestation: I reviewed the patient's lab results. Imaging Data Ct mastoid bones: Attestation: I personally reviewed and interpreted this imaging study as follows: Radiologist's impression: [id number] [place] [address] CT Scan Report Signed Patient: Gosia Rizo MR#: [id number] : 1990 Acct:[id number] Age/Sex: 31 / F ADM Date: 09/01/21 Loc: HO.ED Attending Dr: Ordering Physician: Janice Rebollar NP Date of Service: 09/01/21 Procedure(s): CT mastoid Accession Number(s): [id number] cc: Janice Rebollar NP~ EXAMINATION: CT MASTOID CLINICAL INFORMATION: Right swelling, redness? COMPARISON: None? TECHNIQUE: No intravenous contrast was utilized. Multidetector helical imaging was performed through the bilateral temporal bones. Coronal and sagittal reformatted images were created. DOSE LOWERING TECHNIQUES: This CT examination was performed using dose optimization techniques as appropriate, variously including the following: ?- Automated exposure control ?- Adjustment of mA and/or kV according to patient size (this includes techniques or standardized protocols for targeted exams were dose is matched to indication/reason for exam; i.e. extremities or head) ?- Use of iterative reconstruction technique DLP: 289 mGy-cm FINDINGS: There is a lateral right facial subcutaneous edema overlying the temporal bone and zygoma. No discrete fluid collection is seen in the soft tissues. There is asymmetric, partial opacification of right-sided petrous apex air cells, with no associated osseous destruction identified. Right mastoid air cells and middle ear cavity are otherwise well-aerated. There is suggestion of some thickening along the margin of the right external auditory canal. Left mastoid air cells and middle ear cavity are well aerated. Bilateral temporomandibular joints appear unremarkable. Included portions of the paranasal sinuses are well-aerated. Included portions of the brain parenchyma appear grossly unremarkable. CT/CT mastoid IMPRESSION: Partial opacification of the right petrous apex air cells suspicious for effusion, with no associated osseous destruction seen. Mastoid air cells are otherwise well-aerated. Lateral right facial subcutaneous edema noted, without discrete fluid collection. Discharge Plan Discharge Clinical Impression: Cellulitis, Inflammation of petrous bone Patient Disposition: Home, Self-Care Instructions: Cellulitis (ED), Warm Compress or Soak (ED) Additional Instructions: You have inflammation and infection of your petrous apex. Follow-up with ENT Warm compresses return for fever, increasing redness/swelling Prescriptions: New amoxicillin-pot clavulanate 875-125 mg tablet 1 tab PO BID Qty: 14 0RF ibuprofen 600 mg tablet 600 mg PO QID PRN (Reason: pain) Qty: 20 0RF No Action medroxyprogesterone [Depo-Provera] 150 mg/mL suspension 150 mg IM [id number] Qty: 1 3RF Referrals: Mahnaz Villar MD [Primary Care Provider] - Broderick Delcid [Physician] - Interventions: ED Discharge Assessment Last Done: 09/02/21 00:06 Discharge Date/Time: 09/02/21 00:07 Print Language: Danish
[2021-09-01 22:00] VITALS: BP 114/80; PULSE 82; RESP 16; TEMP 36.3; O2SAT 98
[2021-09-02] VITALS: BP 134/73; PULSE 92; RESP 18; TEMP 36.8; O2SAT 98
[2021-09-02] MEDS: Ibuprofen 600 MG TABLET PO (00:04)
[2021-09-02] MEDS: Amoxicillin/Potassium Clav 875 MG TABLET PO (00:04)
== END 2021-09-02 00:07 | disposition home or self-care (01) ==
PROVIDERS: Emergency Provider Internal Medicine; PCP Internal Medicine
DX: H60.11 Cellulitis of right external ear (principal); H70.211 Acute petrositis, right ear; R51.9 Headache, unspecified; Z79.3 Long term (current) use of hormonal contraceptives
CPT/HCPCS: 70481; 99283; 99284

== ENCOUNTER → 2021-09-08 13:43 | Outpatient (BNVA) | payer MEDICAID, SELFPAY | PROVIDERS: PCP Internal Medicine; Visit Provider Surgery | DX: L02.811 Cutaneous abscess of head [any part, except face] (principal); Q18.1 Preauricular sinus and cyst | CPT/HCPCS: 10060; 87071; 87077; 87186; 87205; 99202 ==

== ENCOUNTER 2021-09-08 14:35 | Outpatient (REF) | payer MEDICAID, SELFPAY | END 2021-09-08 14:36 | disposition home or self-care (01) | LOC: HO.LNP 14:35 | PROVIDERS: Visit Provider Surgery | DX: L02.811 Cutaneous abscess of head [any part, except face] (principal); Q18.1 Preauricular sinus and cyst; L72.3 Sebaceous cyst; L08.9 Local infection of the skin and subcutaneous tissue, unspecified | CPT/HCPCS: 87071; 87077; 87186; 87205 ==

== ENCOUNTER 2021-09-15 12:09 | Outpatient (REF) | payer MEDICAID, SELFPAY | END 2021-09-15 12:10 | disposition home or self-care (01) | LOC: HO.LAB 12:09 | PROVIDERS: PCP Internal Medicine; Visit Provider Obstetrics & Gynecology | DX: N87.1 Moderate cervical dysplasia (principal) | CPT/HCPCS: 57454; 88305 ==

== ENCOUNTER → 2021-10-07 11:49 | Outpatient (BNVA) | payer MEDICAID, SELFPAY | PROVIDERS: PCP Internal Medicine; Visit Provider Obstetrics & Gynecology | DX: N87.0 Mild cervical dysplasia (principal) | CPT/HCPCS: 99212 ==

== ENCOUNTER 2021-11-23 12:54 | Outpatient (REF) | payer MEDICAID, SELFPAY ==
[2021-11-24 12:08] LABS: CT PCR NOT DETECTED (Not Detect.); NG PCR NOT DETECTED (Not Detect.)
[2021-11-24 13:31] LABS: BV Int Neg Control Negative (Negative); BV Int Pos Control Positive (Positive)
== END 2021-11-23 12:55 | disposition home or self-care (01) ==
LOC: HO.LNP 12:54
PROVIDERS: PCP Internal Medicine; Visit Provider Advanced Practice Midwife
DX: N92.6 Irregular menstruation, unspecified (principal); E28.2 Polycystic ovarian syndrome; L68.0 Hirsutism; R10.2 Pelvic and perineal pain; Z32.02 Encounter for pregnancy test, result negative; Z30.09 Encounter for other general counseling and advice on contraception
CPT/HCPCS: 81025; 87480; 87491; 87510; 87591; 87660; 99212

== ENCOUNTER → 2021-12-02 13:21 | Outpatient (BNVA) | payer MEDICAID, SELFPAY | PROVIDERS: PCP Internal Medicine; Visit Provider Internal Medicine Endocrinology, Diabetes & Metabolism | DX: E28.2 Polycystic ovarian syndrome (principal) | CPT/HCPCS: 99202 ==

== ENCOUNTER 2021-12-06 09:36 | Outpatient (REF) | payer MEDICAID, SELFPAY ==
[2021-12-06 10:42] LABS: Estimated Average Glucose 108 mg/dL; Hemoglobin A1c % 5.4 %
[2021-12-06 10:56] LABS: Glucose Random 81 mg/dL (60-115)
== END 2021-12-06 09:37 | disposition home or self-care (01) ==
LOC: HO.10HDL 09:36
PROVIDERS: Visit Provider Internal Medicine Endocrinology, Diabetes & Metabolism
DX: E28.2 Polycystic ovarian syndrome (principal)
CPT/HCPCS: 36415; 82947; 83036

== ENCOUNTER → 2021-12-10 10:49 | Outpatient (BNVA) | payer MEDICAID, SELFPAY | PROVIDERS: PCP Internal Medicine; Visit Provider Dietitian, Registered | DX: E28.2 Polycystic ovarian syndrome (principal); Z71.3 Dietary counseling and surveillance | CPT/HCPCS: 97802 ==

== ENCOUNTER 2021-12-29 11:04 | Outpatient (REF) | payer MEDICAID, SELFPAY ==
--- NOTE | ~2021-12-29 | US_ITS ---
EXAMINATION: US PELVIS CLINICAL INFORMATION: Pelvic pain. Last menstrual period July 2021. COMPARISON: 05/12/2020. TECHNIQUE: Ultrasound of the pelvis is performed using both transabdominal and transvaginal transducers along with Doppler. Transvaginal imaging is performed due to inadequate visualization transabdominally. FINDINGS: The uterus is heterogeneous and measures 6.6 x 2.3 x 4.1 cm, volume 32.6 mL. No discrete fibroids. No significant free fluid. Endometrial thickness is 0.6 cm. Bilateral ovaries contain multiple small follicles. Right ovary measures 2.8 x 2.2 x 1.6 cm, volume 5.2 mL and left ovary 4.7 x 2.5 x 1.6 cm, volume 9.8 mL. US/US pelvic and transvaginal IMPRESSION: 1. Uterine volume 32.6 mL. No discrete fibroids. 2. Endometrial thickness is 0.6 cm.
== END 2021-12-29 11:05 | disposition home or self-care (01) ==
LOC: HO.US 11:04
PROVIDERS: Visit Provider Advanced Practice Midwife
DX: R10.2 Pelvic and perineal pain (principal)
CPT/HCPCS: 76830; 76856

== ENCOUNTER → 2022-03-14 10:46 | Outpatient (BNVA) | payer MEDICAID, SELFPAY | PROVIDERS: Visit Provider Advanced Practice Midwife | DX: Z13.89 Encounter for screening for other disorder (principal) ==

== ENCOUNTER 2022-06-13 12:56 | Outpatient (REF) | payer MEDICAID, SELFPAY ==
[2022-06-13 14:17] LABS: MANUAL DIFF FLAG NO
[2022-06-13 14:30] LABS: Basophils Percent Auto 0.6 % (0-2); Eosinophils Absolute Auto 0.1 X10*3/uL (0.0-0.4); Eosinophils Percent Auto 2.4 % (0-4); Estimated Average Glucose 105 mg/dL; Hematocrit 39.6 % (37.0-47.0); Hemoglobin 12.6 g/dl (12.0-16.0); Hemoglobin A1c % 5.3 %; Imm Gran Abs Auto 0.02 X10*3/uL (0.00-0.03); Imm Gran Pct Auto 0.4 % (0.0-0.4); Lymphocytes Absolute Auto 2.4 X10*3/uL (1.2-4.9); Lymphocytes Percent Auto 44.6 % (20-40); Mean Corpuscular HGB Conc 31.8 g/dl (31.0-35.0); Mean Corpuscular Hemoglobin 26.4 pg (27.0-33.0); Mean Platelet Volume 11.7 fL (9.4-12.3); Monocytes Absolute Auto 0.4 X10*3/uL (0.1-1.2); Monocytes Percent Auto 7.3 % (2-11); Neutrophils Absolute Auto 2.4 x10*3/uL (2.0-8.3); Neutrophils Percent Auto 44.7 % (45-73); Platelet Count 274 X10*3/uL (160-400); Red Blood Count 4.77 X10*6/uL (4.20-5.50); Red Cell Distribution Width 13.9 % (11.0-16.0); White Blood Count 5.3 X10*3/uL (4.8-10.8)
[2022-06-13 15:17] LABS: Alanine Aminotransferase 19 U/L (0-31); Albumin Level 4.1 g/dL (3.5-5.0); Alkaline Phosphatase 77 U/L (39-117); Anion Gap 8 (12-20); Aspartate Amino Transferase 21 U/L (5-31); Bilirubin Total 0.4 mg/dL (0.0-1.0); Blood Urea Nitrogen 9 mg/dL (9-16); Calcium 9.3 mg/dL (8.4-10.2); Carbon Dioxide 29 mmol/L (22-29); Chloride 108 mmol/L (96-108); Cholesterol 195 mg/dL; Estimated Glomerular Filt Rate > 60; Glucose Fasting 77 mg/dL (60-99); HDL Cholesterol 40 mg/dL; LDL Cholesterol Calculated 138 mg/dl; Potassium 4.4 mmol/L (3.3-5.1); Rheumatoid Factor < 13.0 IU/mL (<15.0); Sodium 141 mmol/L (135-145); Total Protein 6.7 g/dL (6.5-8.0); Triglycerides 85 mg/dL
[2022-06-13 15:18] LABS: Erythrocyte Sedimentation Rate 6 MM/HR (0-20)
[2022-06-13 15:26] LABS: Thyroid Stimulating Hormone 1.13 uIU/mL (0.32-4.0)
[2022-06-14 15:44] LABS: Cyclic Citrullinated Peptide <16 UNITS
[2022-06-17 15:04] LABS: Anti Nuclear Antibody Pattern Mitotic, Centrosome; Anti Nuclear Antibody Screen POSITIVE (NEGATIVE)
== END 2022-06-13 12:57 | disposition home or self-care (01) ==
LOC: HO.10HDL 12:56
PROVIDERS: Visit Provider Internal Medicine
DX: Z00.00 Encounter for general adult medical examination without abnormal findings (principal); E28.2 Polycystic ovarian syndrome; G47.00 Insomnia, unspecified; M13.0 Polyarthritis, unspecified; M54.2 Cervicalgia
CPT/HCPCS: 36415; 80053; 80061; 83036; 84443; 85025; 85652; 86038; 86039; 86200; 86431

== ENCOUNTER 2023-01-10 16:20 | Emergency (ER) | payer MEDICAID, SELFPAY ==
--- NOTE | ~2023-01-10 | US_ITS ---
EXAMINATION: US PELVIS CLINICAL INFORMATION: Abnormal uterine bleeding; the last menstrual period is not specified. COMPARISON: Pelvic ultrasound dated 12/29/2021. TECHNIQUE: Ultrasound of the pelvis is performed using both transabdominal and transvaginal transducers along with Doppler. Transvaginal imaging is performed due to inadequate visualization transabdominally. FINDINGS: Uterus: The uterus is anteverted and anteflexed. The uterus measures 6.1 x 2.3 x 3.6 cm. The double wall endometrial thickness is 0.4 mm. The uterus is smooth in contour and has normal myometrial echogenicity. No visible fibroid. Adnexa: Both ovaries are visualized. There is normal color flow to the adnexa. There is no ovarian torsion. There is a small amount of free fluid in the right adnexal region. Right ovary measures 2.9 x 1.6 x 2.0 cm, volume 4.9 mL. Multiple small physiologic follicles are incidentally noted. Left ovary measures 3.9 x 1.5 x 2.2 cm, volume 6.7 mL. Multiple small physiologic follicles are incidentally noted. US/US pelvic and transvaginal IMPRESSION: A small amount of nonspecific free fluid is seen within the right adnexal region. The examination is otherwise unremarkable.
[2023-01-10 16:59] VITALS: BP 133/69; PULSE 86; RESP 20; TEMP 36.1; O2SAT 100; BMI 30.3
[2023-01-10 18:26] LABS: MANUAL DIFF FLAG NO
[2023-01-10 18:28] LABS: Basophils Percent Auto 0.5 % (0-2); Eosinophils Absolute Auto 0.2 X10*3/uL (0.0-0.4); Hematocrit 41.1 % (37.0-47.0); Hemoglobin 13.2 g/dl (12.0-16.0); Imm Gran Abs Auto 0.01 X10*3/uL (0.00-0.03); Imm Gran Pct Auto 0.1 % (0.0-0.4); Lymphocytes Absolute Auto 3.1 X10*3/uL (1.2-4.9); Lymphocytes Percent Auto 40.6 % (20-40); Mean Corpuscular HGB Conc 32.1 g/dl (31.0-35.0); Mean Corpuscular Hemoglobin 27.2 pg (27.0-33.0); Mean Corpuscular Volume 84.6 fL (80.0-98.0); Mean Platelet Volume 10.4 fL (9.4-12.3); Monocytes Absolute Auto 0.6 X10*3/uL (0.1-1.2); Monocytes Percent Auto 7.4 % (2-11); Neutrophils Absolute Auto 3.8 x10*3/uL (2.0-8.3); Neutrophils Percent Auto 49.4 % (45-73); Platelet Count 276 X10*3/uL (160-400); Red Blood Count 4.86 X10*6/uL (4.20-5.50); Red Cell Distribution Width 14.4 % (11.0-16.0); White Blood Count 7.6 X10*3/uL (4.8-10.8)
[2023-01-10 18:45] LABS: Anion Gap 10 (12-20); Blood Urea Nitrogen 10 mg/dL (9-16); Calcium 9.5 mg/dL (8.4-10.2); Carbon Dioxide 30 mmol/L (22-29); Chloride 106 mmol/L (96-108); Creatinine Clr Calc Pharmacy 100.9; Estimated Glomerular Filt Rate > 60; Glucose Random 71 mg/dL (60-115); Potassium 3.7 mmol/L (3.3-5.1); Sodium 142 mmol/L (135-145)
[2023-01-10 20:20] LABS: HCG Quantitative < 2 mIU/mL
--- NOTE | 2023-01-10 22:35 | PC.NURSE ---
Addendum entered by Annie Jones 01/10/23 22:37: Pt ambulated independently with steady gait. Original Note: Pt requesting ultrasound results states I have to leave, I have to work in the morning . Provider Nilesh Miller made aware and unable to see Pt at this time. Pt states she was leaving and was going to follow up with own provider.
== END 2023-01-10 22:37 | disposition left against medical advice (07) ==
PROVIDERS: Internal Medicine; Physician Assistant Medical; Emergency Provider Emergency Medicine; PCP Internal Medicine
DX: N93.9 Abnormal uterine and vaginal bleeding, unspecified (principal); Z79.899 Other long term (current) drug therapy
CPT/HCPCS: 36415; 76830; 76856; 80048; 84702; 85025; 99284

== ENCOUNTER 2023-01-18 12:46 | Outpatient (RCR) | payer MEDICAID, SELFPAY ==
--- NOTE | 2023-01-18 14:09 | MHC.PT.EP ---
[facility] [place] Office [place] Office [place] Office [address] [phone] F: [phone] F: [phone] F: [phone] F: [phone] Physical Therapy Plan of Care Date of Evaluation: 01/18/23 Date of Surgery: Diagnosis: low back pain Assessment: Patient is a 33 year old R handed female who presents with s/s consistent with low back pain. 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 Patient past medical history includes uterine cancer with resultant surgeries. Current impairments include pain, posture, ROM, flexibility, strength, activity tolerance and functional mobility. Functional limitations include decreased ability to bend, lift, stand, carry, push, pull, sleep and negotiate stairs. Patient is motivated with good rehab potential. Skilled PT will address impairments and functional limitations in order to achieve goals. 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 Manual therapy to restore motion and function. Therapeutic exercise to improve strength and flexibility. Neuromuscular re-education for posture and balance. Therapeutic activities to return to functional activities of daily living. Electronically signed by: Patrick Vizcarra PT Please sign and return to therapist. Thank you for your referral.
--- NOTE | 2023-11-23 07:58 | MHC.PT.DC ---
[facility] [place] Office [place] Office [place] Office [address] Carloz Ibrahim 140 [facility] [phone] F: [phone] F: [phone] F: [phone] F: [phone] Physical Therapy Discharge Report Diagnosis: low back pain Date of Surgery: Date of Evaluation: 01/18/23 Date of Discharge: 02/26/23 Treatments to Date: 1 Cancellations to Date: No Shows to Date: Discharge Status: Patient Elected to Stop Discharge Summary: Patient is a 33 year old R handed female who presents with s/s consistent with low back pain. 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 Patient past medical history includes uterine cancer with resultant surgeries. Current impairments include pain, posture, ROM, flexibility, strength, activity tolerance and functional mobility. Functional limitations include decreased ability to bend, lift, stand, carry, push, pull, sleep and negotiate stairs. Patient is motivated with good rehab potential. Skilled PT will address impairments and functional limitations in order to achieve goals. Electronically signed by: Patrick Vizcarra, PT Please sign and return to therapist. Thank you for your referral.
== END 2023-11-23 07:58 | disposition home or self-care (01) ==
LOC: HO.PTCHIC 12:46
PROVIDERS: PCP Internal Medicine; Visit Provider Internal Medicine
DX: M54.50 Low back pain, unspecified (principal)
CPT/HCPCS: 97110; 97162

== ENCOUNTER 2023-01-25 12:53 | Outpatient (REF) | payer MEDICAID, SELFPAY | END 2023-01-25 12:54 | disposition home or self-care (01) | LOC: HO.LNP 12:53 | PROVIDERS: Visit Provider Obstetrics & Gynecology | DX: N93.9 Abnormal uterine and vaginal bleeding, unspecified (principal); N87.0 Mild cervical dysplasia; Z32.02 Encounter for pregnancy test, result negative | CPT/HCPCS: 58100; 81025; 88305; 99212 ==

== ENCOUNTER 2023-01-25 12:53 | Outpatient (AMB) | payer MEDICAID, SELFPAY ==
--- NOTE | 2023-01-25 12:56 | MHC.OFFVIS ---
Intake Vital Signs 01/25/23 13:05 Height 5 ft Weight 154 lb 5.177 oz BMI 30.1 BP 110/70 Intake Visit Reasons: vaginal bleeding/DO NOT RS Volleyball Referee Required: No Information Interpreted: non-clinical & clinical Senior Mechanical Engineer: Senior Mechanical Engineer Present (Ana Maria RIOS) Accompanied by: Self / Same As Patient Allergies No Known Allergies Allergy (Verified 01/25/23 13:05) HPI HPI Comments History of Present Illness Details Presenting complaining of irregular menstrual cycle the last few months associated with hair growth The patient went recent the emergency room the following workup was done: H&H 13.2/41.1, GC/chlamydia negative. Pelvic ultrasound showed the following: IMPRESSION: A small amount of nonspecific free fluid is seen within the right adnexal region. The examination is otherwise unremarkable. The patient had KENDRICK 2 status post cone in 02/2021 with negative pathology followed by colposcopy in 09/10 showed KENDRICK 1 PFSH Medical History Hirsutism PCOS (polycystic ovarian syndrome) Cervical cancer Surgical History H/O LEEP History of lumpectomy of left breast Family History Maternal Uncle FH: kidney cancer Social History Alcohol intake: current Alcohol intake frequency: holidays/special occasions only Patient Tobacco Use Status: Never used Tobacco Substance Use Type: Marijuana Sexual orientation: Straight/Heterosexual Gender identity: Female Female Reproductive History Menstrual Age of Menarche: 9 Review of Systems Const All systems reviewed & are unremarkable except as noted in HPI and below Card Reports as per HPI Resp Reports as per HPI GI Reports as per HPI and Reports no additional complaints Reports as per HPI Physical Exam Vital Signs: Last Vital Signs BP 110/70 01/25/23 13:05 BMI result Body Mass Index 30.1 Const General: cooperative, healthy appearing and comfortable Chest Chest palpation & inspection: normal inspection of the chest and normal palpation of entire chest wall Breast/axilla inspection: normal inspection of the breasts and normal inspection of the axillae Breast/axilla palpation: normal palpation of the breasts, normal palpation of the axillae and no axillary lymphadenopathy Resp Effort & Inspection: normal respiratory effort Auscultation: clear to auscultation bilaterally Percussion: percussion normal Cardio Palpation: normal PMI Rate: regular rate Rhythm: regular rhythm Heart sounds: no murmurs and no rubs Peripheral pulses: Peripheral pulses 2+ throughout GI Inspection: Yes normal to inspection Palpation (GI): Soft to palpation, nontender, no guarding, not rigid and No hepatosplenomegaly present Percussion: Yes normal to percussion Auscultation: normal bowel sounds Rectal Exam - Female: deferred General: Yes bladder normal to palpation External Female Exam: No lesion Speculum Exam - Vagina: normal appearance of the vagina, normal palpation, normal vaginal discharge and not erythematous Speculum Exam - Cervix: normal appearance of the cervix and normal palpation Bimanual exam- vagina & uterus: normal bimanual exam, normal palpation, uterine size normal, bladder normal to palpation, consistency normal and normal palpation Bimanual Exam- Adnexa, other: normal adnexae, no masses and no tenderness Office Procedures Endometrial Biopsy Details: The patient was counseled regarding the indication and benefits of endometrial sampling to rule out endometrial pathology including not limited to endometrial hyperplasia or endometrial cancer and others; The alternatives (Either do nothing vs. hysteroscopy D&C) & the risks were discussed with the patient including but not limited: pain, uterine perforation, bleeding, infection, possible injury to bladder, bowel, ureter, possible need for blood transfusion with all its possible risks. The patient verbalized understanding all questions answered and signed consent. Urine test done in the office was negative The patient was placed into the dorsal lithotomy position; a speculum was inserted in the vagina. Using aseptic technique for the procedure, the cervix was cleansed with Betadine. The anterior lip of the cervix was grasped with a single tooth tenaculum. The uterus was sounded to 7 cm with a 4 mm Pipelle was used. Tissues samples were obtained and placed in formalin, in a patient labeled container and sent to the pathology department. At the end of the procedure, there was minimal bleeding noted The patient tolerated the procedure well and was discharged in good condition with the following instructions: Nothing in the vagina until the bleeding stops. No sex until the bleeding stops, to call if any of the following occurs: fever (>100.4), flu-like symptoms, abdominal pain, heavy bleeding, four smelling vaginal discharge. The patient was instructed to schedule a Follow up appointment in 2 weeks to discuss pathology results of the biopsy and treatment options. This note was generated with a voice recognition program. Some errors may have been overlooked during the review of this note. Sometimes these errors may affect the content or meaning of a given sentence. [id number] Biopsy Results AMB Test Urine AMB Test Urine Negative Last Edit by Ana Maria Chávez CMA on 01/25/23 13:07 Results Reviewed Results Reviewed: Laboratory Last Values Tst Clinic Negative 01/25/23 13:06 Assessment & Plan Assessment & Plan (1) Abnormal uterine bleeding (AUB): Comment: hirsutism Code(s): N93.9 - Abnormal uterine and vaginal bleeding, unspecified Plan: GC and chlamydia taken CBC, and pelvic ultrasound recently done emergency room will order, TSH, prolactin, HCG, and 17 hydroxyprogesterone was total and free testosterone. Discussed with the patient the different causes of abnormal bleeding including thyroid disorders, uterine and ovarian pathology, endometrial hyperplasia, carcinoma and other potential causes. Discussed with the patient the work up including CBC (to r/o anemia), TSH, pelvic Ultrasound, androgen levels endometrial biopsy to r/o endometrial pathology. EMB done, see procedure note. All questions answered and the patient verbalized understanding. Instructed the patient to schedule a follow-up appointment in 2 weeks. (2) Dysplasia of cervix, low grade (KENDRICK 1): Code(s): N87.0 - Mild cervical dysplasia Plan: Will schedule co testing in 09/11 peer Orders: Orders AMB Endometrial Biopsy Today N93.9 - Abnormal uterine and vaginal bleeding, unspecified AMB HCG Urine Test Today Z32.02 - Encounter for test, result negative Surgical Today N93.9 - Abnormal uterine and vaginal bleeding, unspecified Coding Level of Care Code Est Pt Level 3 (53892) Procedure Only Diagnoses Abnormal uterine bleeding (AUB) N93.9 Dysplasia of cervix, low grade (KENDRICK 1) N87.0 CPT Codes Endometrial Biopsy - CPT: 54395-Kzijksibjlx Biopsy ([id number])
[2023-01-25 13:05] VITALS: BP 110/70; BMI 30.1
== END 2023-01-25 13:39 | disposition home or self-care (01) ==
PROVIDERS: Visit Provider Obstetrics & Gynecology
DX: N93.9 Abnormal uterine and vaginal bleeding, unspecified (principal); N87.0 Mild cervical dysplasia; Z32.02 Encounter for pregnancy test, result negative
CPT/HCPCS: 58100; 99213

== ENCOUNTER 2023-03-21 09:02 | Outpatient (AMB) | payer MEDICAID, SELFPAY ==
--- NOTE | 2023-03-21 09:16 | A.OFFVIS_ITS ---
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 The following workup was done.: H&H= 13.2/41.1 TSH, hCG, GC and chlamydia were negative. Endometrial biopsy pathology showed inactive endometrium with no evidence of hyperplasia and/or malignancy. The patient had KENDRICK 2 status post LEEP cone in 03/13 followed by 6 months follow- up colpo biopsy in 09/10 which was KNEDRICK 1 pre Pelvic ultrasound showed the following: Uterus: The uterus is anteverted and anteflexed. The uterus measures 6.1 x 2.3 x 3.6 cm. The double wall endometrial thickness is 0.4 mm. The uterus is smooth in contour and has normal myometrial echogenicity. No visible fibroid. Adnexa: Both ovaries are visualized. There is normal color flow to the adnexa. There is no ovarian torsion. There is a small amount of free fluid in the right adnexal region. Right ovary measures 2.9 x 1.6 x 2.0 cm, volume 4.9 mL. Multiple small physiologic follicles are incidentally noted. Left ovary measures 3.9 x 1.5 x 2.2 cm, volume 6.7 mL. Multiple small physiologic follicles are incidentally noted. Androgen levels were not done yet preop No follow-up co testing done PFSH Medical History Hirsutism PCOS (polycystic ovarian syndrome) Cervical cancer Surgical History H/O LEEP History of lumpectomy of left breast Family History Maternal Uncle FH: kidney cancer Social History Alcohol intake: current Alcohol intake frequency: holidays/special occasions only Patient Tobacco Use Status: Never used Tobacco Substance Use Type: Marijuana Sexual orientation: Straight/Heterosexual Gender identity: Female Female Reproductive History Menstrual Age of Menarche: 9 control method: none Review of Systems Const All systems reviewed & are unremarkable except as noted in HPI and below Reports as per HPI and Reports no additional complaints GI Reports no additional complaints Reports no additional complaints Physical Exam Vital Signs: Last Vital Signs BP 120/76 03/21/23 09:17 BMI result Body Mass Index 30.1 Assessment & Plan Assessment & Plan (1) Abnormal uterine bleeding (AUB): Comment: Rule out PCOS Code(s): N93.9 - Abnormal uterine and vaginal bleeding, unspecified Plan: Instructed the patient to have her under the level done matty. Discussed with the patient the results of her blood work included TSH, hCG and GC and chlamydia, explained to the patient that prolactin, testosterone, 17 hydroxyprogesterone have not been done yet. Explained to the patient that she has a potential diagnosis of PCOS pending androgen level. D/w the patient the association of PCOS with an increase in the risk of diabetes or pre diabetes, heart disease, hypercholesterolemia and metabolic syndrome, endometrial hyperplasia and/or cancer if untreated and an increase in the risk of breast cancer. Recommended for the patient the following: -To call her pcp to screen for cardiovascular risk and diabetes with FBS and 2 hr GTT after 75 g OGTT, in addition to cholesterol, lipids, HDL and LDL. -Instructions given to patient to increase exercise combined with dietary changes reduce the risk of diabetes, explained to the patient that reduction in body weight has been associated with improved rate and decreased hirsutism as well as improvement in glucose tolerance and lipid levels -For her Menstrual cycle control: Discussed with the patient the following options of treatment : Combination low-dose hormonal contraceptives are recommended as the primary treatment for menstrual disorder Or Progestins: Cyclic progesterone versus Mirena IUD No studies have addressed the long-term use of depot medroxyprogesterone acetate and intermittent oral medroxyprogesterone acetate to treat hirsutism. The regimen of cyclic oral progestin therapy or progestin-containing intrauterine devices that most effectively prevent endometrial cancer in women with PCOS is unknown. Progestin-only contraceptives or progestin-containing intrauterine devices are an alternative for endometrial protection, but they are associated with abnormal bleeding patterns in 50?89% of users After discussion all the pros and cons risks benefits of each were discussed with the patient, the patient decided to proceed cyclic progestin since she is interested in future fertility, please send prescription for Prometrium 200 mg p.o. q.d. day 15-24. Instructions given the patient to schedule a 3 months medication follow-up point -If the patient is interested in will send pt for a consult to reproductive endocrinology. All questions answered. Pt verbalized understanding (2) Dysplasia of cervix, low grade (KENDRICK 1): Comment: Preceded by worse abnormality, KENDRICK 2 in 09/09 status post LEEP cone in 03/13 Code(s): N87.0 - Mild cervical dysplasia Plan: Recommended patient Co testing to be done today, the patient is on her menstrual cycle and would like to come back within 2 weeks. Instructions given the patient to schedule an appointment for co testing within 2 weeks. All questions answered, the patient verbalized understanding. Medications: New progesterone micronized (Prometrium) Take the pill 1 tablet a day cyclically every month from day 15-24 day 1 being the 1st day of next menstrual cycle 200 mg PO BEDTIME 10 days 30 caps 0RF Coding Level of Care Code Est Pt Level 3 (63864) Diagnoses Abnormal uterine bleeding (AUB) N93.9 Dysplasia of cervix, low grade (KENDRICK 1) N87.0
[2023-03-21 09:17] VITALS: BP 120/76; BMI 30.1
== END 2023-03-21 10:15 | disposition home or self-care (01) ==
LOC: HO.HWS 09:02
PROVIDERS: Visit Provider Obstetrics & Gynecology
DX: N93.9 Abnormal uterine and vaginal bleeding, unspecified (principal); N87.0 Mild cervical dysplasia
CPT/HCPCS: 99213

== ENCOUNTER 2023-03-21 09:02 | Outpatient (REF) | payer MEDICAID, SELFPAY ==
[2023-03-21 11:24] LABS: HCG Quantitative < 2 mIU/mL
[2023-03-24 21:58] LABS: Prolactin 6.7 ng/mL
[2023-03-25 21:48] LABS: Testosterone, Free 6.2 pg/mL (0.1-6.4); Testosterone, Total 45 ng/dL (2-45)
== END 2023-03-21 09:03 | disposition home or self-care (01) ==
LOC: HO.LAB 09:02
PROVIDERS: PCP Internal Medicine; Visit Provider Obstetrics & Gynecology
DX: N93.9 Abnormal uterine and vaginal bleeding, unspecified (principal); N87.0 Mild cervical dysplasia; L68.0 Hirsutism
CPT/HCPCS: 36415; 83498; 84146; 84402; 84403; 84702; 99212

== ENCOUNTER 2023-03-22 09:53 | Outpatient (REF) | payer MEDICAID, SELFPAY ==
[2023-03-25 08:28] LABS: TS Negative Control Passed; TS Panel A 0; TS Panel B 0; TS Positive Control Passed; TSpotTB Negative (Negative)
== END 2023-03-22 09:54 | disposition home or self-care (01) ==
LOC: HO.LAB 09:53
PROVIDERS: PCP Internal Medicine; Visit Provider Internal Medicine
DX: Z11.1 Encounter for screening for respiratory tuberculosis (principal)
CPT/HCPCS: 36415; 86481

== ENCOUNTER 2023-06-08 15:21 | Outpatient (AMB) | payer MEDICAID, SELFPAY ==
--- NOTE | 2023-06-08 15:38 | A.OFFVIS_ITS ---
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 q.d. day 15-24 for AUB. In addition the patient is presenting for co testing, the patient had KENDRICK 2 status post LEEP cone in 03/13 followed by colposcopy /biopsy/ECC in 09/10 which showed KENDRICK 1. TSH, prolactin, hCG within normal 17 hydroxyprogesterone, testosterone total and free within normal PFSH Medical History Hirsutism PCOS (polycystic ovarian syndrome) Cervical cancer Surgical History H/O LEEP History of lumpectomy of left breast Family History Maternal Uncle FH: kidney cancer Social History Alcohol intake: current Alcohol intake frequency: holidays/special occasions only Patient Tobacco Use Status: Never used Tobacco Substance Use Type: Marijuana Sexual orientation: Straight/Heterosexual Gender identity: Female Female Reproductive History Menstrual Age of Menarche: 9 Review of Systems Const All systems reviewed & are unremarkable except as noted in HPI and below Reports as per HPI and Reports no additional complaints GI Reports no additional complaints Reports no additional complaints Physical Exam Vital Signs: BMI result Body Mass Index 29.7 General: Yes no CVA tenderness External Female Exam: normal external appearance and normal appearance of the urethra Speculum Exam - Vagina: normal appearance of the vagina, normal palpation, no lesions and no masses Speculum Exam - Cervix: normal appearance of the cervix, normal palpation, no lesions, no masses and nontender Bimanual exam- vagina & uterus: normal bimanual exam, normal palpation, uterine size normal, normal palpation, uterine shape normal, No Cervical tenderness present and non-tender Bimanual Exam- Adnexa, other: normal adnexae Back/Spine/Pelvis Back: no CVA tenderness Assessment & Plan Assessment & Plan (1) Abnormal uterine bleeding (AUB): Comment: Rule out PCOS Code(s): N93.9 - Abnormal uterine and vaginal bleeding, unspecified Category: Medical Plan: Discussed with the patient the results of the testosterone level total and free in addition to 17 hydroxy progesterone. Recommended to the patient to stay on Prometrium 200 mg p.o. q.d. day 15-24 cyclicly. All questions answered, the patient verbalized understanding (2) Dysplasia of cervix, low grade (KENDRICK 1): Comment: Preceded by worse abnormality, KENDRICK 2 in 09/09 status post LEEP cone in 03/13 Code(s): N87.0 - Mild cervical dysplasia Category: Medical Plan: Co testing done, instructions given the patient to schedule co testing in a year Medications: Refilled progesterone micronized (Prometrium) Take the pill 1 tablet a day cyclically every month from day 15-24 day 1 being the 1st day of next menstrual cycle 200 mg PO BEDTIME 10 days 30 caps 3RF
[2023-06-08 15:51] VITALS: BMI 29.7
== END 2023-06-08 16:06 | disposition home or self-care (01) ==
PROVIDERS: Referring Provider Internal Medicine; Visit Provider Obstetrics & Gynecology
DX: N93.9 Abnormal uterine and vaginal bleeding, unspecified (principal); N87.0 Mild cervical dysplasia
CPT/HCPCS: 99213

== ENCOUNTER 2023-06-08 15:21 | Outpatient (REF) | payer MEDICAID, SELFPAY ==
[2023-06-15 02:24] LABS: HPV mRNA E6/E7 rflx Not Detected (Not Detected)
== END 2023-06-08 15:22 | disposition home or self-care (01) ==
LOC: HO.LNP 15:21
PROVIDERS: Visit Provider Obstetrics & Gynecology
DX: N87.0 Mild cervical dysplasia (principal); N93.9 Abnormal uterine and vaginal bleeding, unspecified
CPT/HCPCS: 87624; 88142; 99212

== ENCOUNTER 2023-07-18 09:01 | Emergency (ER) | payer MEDICAID, SELFPAY ==
[2023-07-18 10:03] VITALS: BP 151/62; PULSE 64; RESP 18; TEMP 36.5; O2SAT 100; BMI 26.6
[2023-07-18 10:53] LABS: UPreg QC Valid YES; Urine Pregnancy POSITIVE (NEGATIVE)
--- NOTE | 2023-07-18 10:53 | ED.GENADULT ---
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 States this is her first , LMP was 06/14. States she wants to be tested again to ensure the test was accurate. Denies any abdominal pain, nausea or vomiting, vaginal bleeding or other abnormal vaginal discharge. States that she has an OBGYN but has not contacted the office. MD complaint: Associated symptoms: denies other symptoms Treatments prior to arrival: none Related Data Home Medications ?Medication ?Instructions ?Recorded ?Confirmed calcium polycarbophil 625 mg 625 mg PO BID 11/23/21 tablet (Fiber-Lax) cyanocobalamin (vitamin B-12) 1,000 mcg PO DAILY 11/23/21 1,000 mcg tablet,extended release cholecalciferol (vitamin D3) 125 125 mcg PO DAILY 12/02/21 mcg (5,000 unit) capsule linaclotide 145 mcg capsule 145 mcg PO DAILY 12/02/21 (Linzess) multivitamin 1 tab PO DAILY 12/02/21 Previous Rx's ?Medication ?Instructions ?Recorded vitamin with calcium 1 tab PO DAILY #30 tabs 11/23/21 no.72-iron 27 mg-folic acid 1 mg tablet ( Vitamins Plus Low Iron) progesterone micronized 200 mg 200 mg PO BEDTIME 10 days #30 caps 06/08/23 capsule (Prometrium) Allergies Allergy/AdvReac Type Severity Reaction Status Date / Time No Known Allergies Allergy Verified 07/18/23 10:10 Review of Systems Review of Systems: As per HPI. Yes all other systems are reviewed and are negative Constitutional: Constitutional: Reports as per HPI PMF Past Medical History Medical History Hirsutism PCOS (polycystic ovarian syndrome) Cervical cancer Surgical History H/O LEEP History of lumpectomy of left breast Family History Family History Maternal Uncle FH: kidney cancer Social History Social History Alcohol intake: current Alcohol intake frequency: holidays/special occasions only Patient Tobacco Use Status: Never used Tobacco Substance Use Type: Marijuana Advance Directives: No Do you have a plan to hurt others: No Plan Sexual orientation: Straight/Heterosexual Gender identity: Female Physical Exam ED Vital Signs: Vital Signs - 24 hr 07/18/23 10:03 Temperature 97.7 F Pulse Rate 64 Respiratory Rate 18 Blood Pressure 151/62 H Pulse Oximetry 100 Oxygen Delivery Method Room Air BMI result Body Mass Index 26.6 Vital signs have been reviewed and appear to be correct. Blood pressure normal. Heart rate normal. Respiratory rate normal. Temperature normal. Oxygen saturation normal. Const General: cooperative, healthy appearing and no acute distress Orientation/consciousness: oriented to person, oriented to place, oriented to time and patient oriented x3 Limitations: no limitations HENMT Head: Yes normocephalic and Yes atraumatic Ears: external ears normal General nose exam: Normal external nose present Face and sinus: Yes face symmetric Mouth: oropharynx normal and moist mucous membranes Throat: Yes uvula midline Eyes Pupils: Equal, round and reactive pupils present Neck Neck: Yes normal visual inspection and Yes supple Resp Effort & Inspection: normal respiratory effort and able to speak in complete sentences Auscultation: clear to auscultation bilaterally Cardio Rate: regular rate Rhythm: regular rhythm Heart sounds: S1 normal heart sound present and S2 normal heart sound present GI Palpation (GI): Soft to palpation and nontender Auscultation: normoactive bowel sounds General: Yes no CVA tenderness Back/Spine/Pelvis Back: no CVA tenderness Skin General skin exam: elasticity normal and turgor normal Neuro General: oriented to person, oriented to place, oriented to time, patient oriented x3, moves all extremities, no focal motor deficits and CN's II-XI intact bilaterally Cranial nerves: Yes Equal, round and reactive pupils present Cognition (Neuro): normal cognition Extrem General: Yes full ROM, Yes no pedal edema and Yes no calf tenderness Psych Mental Status: mental status grossly normal Affect: normal affect Thought process: Normal thought process present Medical Decision Making Medical Decision Making MDM Narrative: Patient is a 33-year-old Tristanian-speaking female with history of PCOS, anemia presenting to the emergency department after testing positive on home test. On exam patient is awake, BP elevated, A+Ox3, VS otherwise WNL, afebrile, normal neurological exam without focal deficits, physical exam findings as above. Given reported symptoms and physical exam findings, initial differential includes , false positive test. No concern for ectopic as patient denies any abdominal pain. No concern for threatened at this time as patient denies any vaginal bleeding. Urine positive, hCG 499. 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 Return precautions discussed with patient at bedside. Patient verbalized understanding of and agreement with plan. Differential Diagnosis Differential Diagnoses: The differential diagnosis associated with the presentation includes MDM. Lab Data [facility] Lab Attestation statement: I reviewed the patient's lab results. As per MDM. Labs: Lab Results 07/18/23 07/18/23 Range/Units 10:39 11:01 Beta HCG, Quant 499 mIU/mL Urine Test POSITIVE H (NEGATIVE) External Record Review External record reviewed: Inpatient record, Office record and Outpatient record Discharge Plan Discharge Clinical Impression: Positive test Patient Disposition: Home, Self-Care Instructions: (ED) Additional Instructions: You were evaluated in the emergency department today for a positive test. Your testing with positive in the emergency department today as well. We recommend that you follow-up with your culinary chef as soon as possible. Return to the emergency department if you develop abdominal pain, vaginal bleeding or other vaginal discharge, persistent vomiting, fever or any other concerning symptoms. Prescriptions: No Action cyanocobalamin (vitamin B-12) 1,000 mcg tablet extended release 1,000 mcg PO DAILY calcium polycarbophil [Fiber-Lax] 625 mg tablet 625 mg PO BID Vitamin Plus Low Iron 27 mg iron- 1 mg tablet 1 tab PO DAILY Qty: 30 11RF multivitamin Tablet 1 tab PO DAILY cholecalciferol (vitamin D3) 125 mcg (5,000 unit) capsule 125 mcg PO DAILY Linzess 145 mcg capsule 145 mcg PO DAILY progesterone micronized [Prometrium] 200 mg capsule 200 mg PO BEDTIME 10 Days Qty: 30 3RF Rx Instructions: Take the pill 1 tablet a day cyclically every month from day 15-24 day 1 being the 1st day of next menstrual cycle Referrals: [facility] [employer] [Provider Group] Francis Tong MD [Physician] - Print Language: Tristanian
[2023-07-18 11:41] LABS: HCG Quantitative 499 mIU/mL
[2023-07-18 13:07] VITALS: BP 130/67; PULSE 85; RESP 20; TEMP 36.6; O2SAT 100
== END 2023-07-18 13:08 | disposition home or self-care (01) ==
PROVIDERS: Registered Nurse Emergency; Emergency Provider Emergency Medicine
DX: Z32.01 Encounter for pregnancy test, result positive (principal)
CPT/HCPCS: 36415; 81025; 84702; 99282; 99283

== ENCOUNTER 2023-07-27 01:58 | Emergency (ER) | payer MEDICAID, SELFPAY ==
--- NOTE | ~2023-07-27 | US_ITS ---
EXAMINATION: US OBSTETRICAL ULTRASOUND CLINICAL INFORMATION: Pain, bleeding, question ectopic COMPARISON: None from this TECHNIQUE: Sonographic evaluation of the pelvis was performed transabdominally and transvaginally. FINDINGS: There is an intrauterine gestational sac with mean diameter of 1.0 cm, corresponding to gestational age of 5 weeks 5 days (estimated date of delivery 03/23/2024). Yolk sac is seen. No pole is present at this time. Right ovary measures 2.9 x 2.7 x 2.2 cm. There is a complex appearing cyst in the right ovary measuring up to 2.1 cm, suggestive of a corpus luteal cyst. The left ovary measures 1.8 x 1.3 x 1.3 cm and appears unremarkable. No adnexal mass is seen. Small amount of pelvic free fluid is present. US/US OB pelvic and transvaginal IMPRESSION: 1. Intrauterine gestational sac with mean diameter corresponding to gestational age of 5 weeks 5 days (estimated date of delivery 03/23/2024). No pole is visible at this time, which may be due to the early phase of . Short-term sonographic follow-up is recommended to assess for development of a pole. 2. Small amount of nonspecific pelvic free fluid.
[2023-07-27 02:02] VITALS: BP 150/86; PULSE 74; RESP 20; TEMP 37.1; O2SAT 100; BMI 26.4
[2023-07-27 02:17] VITALS: BP 134/83; PULSE 83; RESP 16; O2SAT 100
--- NOTE | 2023-07-27 02:17 | MHC.EDTECH ---
pt given urine specimen cup
[2023-07-27 02:26] LABS: MANUAL DIFF FLAG NO
[2023-07-27 02:31] LABS: Basophils Absolute Auto 0.1 X10*3/uL (0.0-0.2); Basophils Percent Auto 0.6 % (0-2); Eosinophils Absolute Auto 0.1 X10*3/uL (0.0-0.4); Eosinophils Percent Auto 1.4 % (0-4); Hemoglobin 12.4 g/dl (12.0-16.0); Imm Gran Abs Auto 0.03 X10*3/uL (0.00-0.03); Imm Gran Pct Auto 0.3 % (0.0-0.4); Lymphocytes Absolute Auto 4.3 X10*3/uL (1.2-4.9); Mean Corpuscular HGB Conc 34.4 g/dl (31.0-35.0); Mean Corpuscular Hemoglobin 28.1 pg (27.0-33.0); Mean Corpuscular Volume 81.6 fL (80.0-98.0); Mean Platelet Volume 10.5 fL (9.4-12.3); Monocytes Absolute Auto 0.9 X10*3/uL (0.1-1.2); Monocytes Percent Auto 9.7 % (2-11); Platelet Count 260 X10*3/uL (160-400); Red Blood Count 4.41 X10*6/uL (4.20-5.50); Red Cell Distribution Width 13.1 % (11.0-16.0); White Blood Count 9.4 X10*3/uL (4.8-10.8)
[2023-07-27 02:41] LABS: Appearance Urine Hazy; Glucose Urine UA Negative (Negative); Leukocyte Esterase Urine Moderate (2+) (Negative); Nitrite Urine Positive (Negative); PH 6.5 (5.0-9.0); UMIC TRIGGER UACC YES; Urine Blood Large (3+) (Negative); Urine Ketones Trace mg/dL (Negative); Urine Protein 300 (3+) mg/dL (Neg-Trace)
[2023-07-27 02:43] LABS: Color Urine RED
[2023-07-27 02:44] LABS: Bacteria Urine 4+ (None Seen); Hyaline Casts Urine 0-2 /LPF (0-2); RBC Urine >20 /HPF (0-2); UACC Culture Trigger YES; WBC Urine 0-5 /HPF (0-5)
[2023-07-27 02:48] LABS: Alanine Aminotransferase 12 U/L (0-31); Albumin Level 4.3 g/dL (3.5-5.0); Alkaline Phosphatase 58 U/L (39-117); Anion Gap 12 (12-20); Aspartate Amino Transferase 21 U/L (5-31); Bilirubin Total 0.2 mg/dL (0.0-1.0); Blood Urea Nitrogen 10 mg/dL (9-16); Calcium 9.6 mg/dL (8.4-10.2); Carbon Dioxide 24 mmol/L (22-29); Chloride 107 mmol/L (96-108); Creatinine Clr Calc Pharmacy 100.6; Estimated Glomerular Filt Rate > 60; Glucose Random 90 mg/dL (60-115); HCG Quantitative 10923 mIU/mL; Potassium 3.6 mmol/L (3.3-5.1); Sodium 139 mmol/L (135-145); Total Protein 7.7 g/dL (6.5-8.0)
[2023-07-27 04:01] VITALS: BP 117/67; PULSE 57; RESP 16; O2SAT 98
--- NOTE | 2023-07-27 04:16 | ED.ABDPAIN ---
HPI - Abdominal Pain General Chief Complaint: Abdominal Pain Stated Complaint: /lower pain/haven't gone to the bathroom Time Seen by Provider: 07/27/23 04:03 History of Present Illness HPI narrative: Patient is a 33-year-old female 1st time presents today with having lower abdominal pain no bowel movement for the last 5 days also having some spotting. Patient denies any fever chills. Denies any coughing congestion. Also noted some blood in the urine. Denies any fever chills. Denies any shortness of breath. Denies any diaphoresis. Positive history of cervical cancer in the past. Did not have an ultrasound for this her last menstrual period was June 11. Related Data Home Medications ?Medication ?Instructions ?Recorded ?Confirmed calcium polycarbophil 625 mg 625 mg PO BID 11/23/21 tablet (Fiber-Lax) cyanocobalamin (vitamin B-12) 1,000 mcg PO DAILY 11/23/21 1,000 mcg tablet,extended release cholecalciferol (vitamin D3) 125 125 mcg PO DAILY 12/02/21 mcg (5,000 unit) capsule linaclotide 145 mcg capsule 145 mcg PO DAILY 12/02/21 (Linzess) multivitamin 1 tab PO DAILY 12/02/21 Previous Rx's ?Medication ?Instructions ?Recorded vitamin with calcium 1 tab PO DAILY #30 tabs 11/23/21 no.72-iron 27 mg-folic acid 1 mg tablet ( Vitamins Plus Low Iron) progesterone micronized 200 mg 200 mg PO BEDTIME 10 days #30 caps 06/08/23 capsule (Prometrium) nitrofurantoin 100 mg PO BID 7 days #14 caps 07/27/23 monohydrate/macrocrystals 100 mg capsule (Macrobid) Allergies Allergy/AdvReac Type Severity Reaction Status Date / Time No Known Allergies Allergy Verified 07/27/23 02:03 Review of Systems Review of Systems Positive lower abdominal pain Positive constipation Yes all other systems are reviewed and are negative PMFSH Past Medical History Attestation statement: The following information was validated with the patient. Medical History Hirsutism PCOS (polycystic ovarian syndrome) Cervical cancer Surgical History H/O LEEP History of lumpectomy of left breast Family History Family History Maternal Uncle FH: kidney cancer Social History Social History Alcohol intake: current Alcohol intake frequency: holidays/special occasions only Patient Tobacco Use Status: Never used Tobacco Smoked in Last 30 Days: No Use of substances other than those prescribed or required for medical reasons: No Substance Use Type: Marijuana Advance Directives: No Advance Directives Information Provided: Yes Do you have a plan to hurt others: No Plan Patient : Yes Sexual orientation: Straight/Heterosexual Gender identity: Female Physical Exam ED Vital Signs: Vital Signs - 24 hr 07/27/23 02:02 07/27/23 02:17 07/27/23 04:01 Temperature 98.7 F Pulse Rate 74 83 57 Respiratory Rate 20 16 16 Blood Pressure 150/86 H 134/83 117/67 Pulse Oximetry 100 100 98 Oxygen Delivery Method Room Air Room Air Room Air 07/27/23 06:02 Temperature Pulse Rate 72 Respiratory Rate 16 Blood Pressure 125/71 Pulse Oximetry 100 Oxygen Delivery Method Room Air BMI result Body Mass Index 26.4 Appearance: Alert. Oriented X3. No acute distress. Eyes: Pupils equal, round and reactive to light. ENT: Pharynx normal. Neck: Normal inspection. Neck supple. No lymph nodes noted. No crepitus CVS: Normal heart rate and rhythm. Pulses normal. Normal S1 and S2 Respiratory: No respiratory distress. Breath sounds normal. No Wheezing. No rales Abdomen: Soft and nontender. No rigidity. No distention. good BS x4. Pelvic exam was done with nurse Farrukh present. No gross discharge noted. No blood in the vaginal vault. Rectal exam was done with nursing present. There is minimal stool in the vault. No gross blood noted. Skin: Skin warm and dry. Normal skin color. Normal skin turgor. Extremities: No lower extremity edema. Neurovascular intact to all extremities. No Lacerations. No Rash Neuro: Oriented X 3. No motor deficit. No sensory deficit. Moving all extermities. No slurred speech Medical Decision Making Medical Decision Making MDM Narrative: Patient is 33 years old LMP was June 11. Patient is blood type came back 0-. A dose of RhoGAM was given. Pelvic exam showed no gross bleeding. Patient is rectal exam showed no gross stool present in the vault. A Fleet enema was given. Patient had a large bowel movement. Symptomatically improved. Ultrasound was done. The ultrasound showed a gestational sac but no pole. Patient explained the need to closely follow up on an outpatient basis. Will give the phone number for OBGYN. Explained to patient [place] does not have a birthing unit. Patient to be discharged home risk of ectopic exceptionally low in stable condition. Differential Diagnosis Differential Diagnoses: The differential diagnosis associated with the presentation includes Ectopic demise, constipation, ABO incompatibility. Patient's urine also shows a urinary tract infection will give antibiotics. Admission/Observation Consideration of admission/observation: Escalation of care including admission/observation considered Lab Data MDM Lab Attestation statement: I reviewed the patient's lab results. 07/27/23 02:22 07/27/23 02:22 Labs: Lab Results 07/27/23 07/27/23 Range/Units 02:21 02:22 WBC 9.4 (4.8-10.8) X10*3/uL RBC 4.41 (4.20-5.50) X10*6/uL Hgb 12.4 (12.0-16.0) g/dl Hct 36.0 L (37.0-47.0) % MCV 81.6 (80.0-98.0) fL MCH 28.1 (27.0-33.0) pg MCHC 34.4 (31.0-35.0) g/dl RDW 13.1 (11.0-16.0) % Plt Count 260 (160-400) X10*3/uL MPV 10.5 (9.4-12.3) fL Immature Gran % (Auto) 0.3 (0.0-0.4) % Neut % (Auto) 42.0 L (45-73) % Lymph % (Auto) 46.0 H (20-40) % [place] % (Auto) 9.7 (2-11) % Eos % (Auto) 1.4 (0-4) % Baso % (Auto) 0.6 (0-2) % Lymph # (Auto) 4.3 (1.2-4.9) X10*3/uL [place] # (Auto) 0.9 (0.1-1.2) X10*3/uL Eos # (Auto) 0.1 (0.0-0.4) X10*3/uL Baso # (Auto) 0.1 (0.0-0.2) X10*3/uL Abs Immat Gran (auto) 0.03 (0.00-0.03) X10*3/uL Absolute Neuts (auto) 4.0 (2.0-8.3) x10*3/uL Absolute Nucleated RBC 0.000 (0.0-0.012) X10*3/uL Nucleated RBC % (auto) 0.0 (0.0-0.2) /100WBC Sodium 139 (135-145) mmol/L Potassium 3.6 (3.3-5.1) mmol/L Chloride 107 (96-108) mmol/L Carbon Dioxide 24 (22-29) mmol/L Anion Gap 12 (12-20) BUN 10 (9-16) mg/dL Creatinine 0.65 (0.5-1.4) mg/dL Estim Creat Clear Calc 100.6 Estimated GFR > 60 Random Glucose 90 (60-115) mg/dL Calcium 9.6 (8.4-10.2) mg/dL Total Bilirubin 0.2 (0.0-1.0) mg/dL AST 21 (5-31) U/L ALT 12 (0-31) U/L Alkaline Phosphatase 58 (39-117) U/L Total Protein 7.7 (6.5-8.0) g/dL Albumin 4.3 (3.5-5.0) g/dL Beta HCG, Quant 90859 mIU/mL Urine Color RED Urine Appearance Hazy Urine pH 6.5 (5.0-9.0) Ur Specific [place] 1.020 (1.005-1.025) Urine Protein 300 (3+) H (Neg-Trace) mg/dL Urine Glucose (UA) Negative (Negative) mg/dL Urine Ketones Trace (Negative) mg/dL Urine Blood Large (3+) H (Negative) Urine Nitrite Positive H (Negative) Ur Leukocyte Esterase Moderate (2+) H (Negative) Urine RBC >20 H (0-2) /HPF Urine WBC 0-5 (0-5) /HPF Ur Squamous Epith Cells 3-5 (0-2) /HPF Urine Bacteria 4+ (None Seen) Hyaline Casts 0-2 (0-2) /LPF Blood Type O Negative Independent Interpretation I performed an independent interpretation of an: Ultrasound (No pole noted) Radiology Impression Discussion of test interpretation with radiology: I have reviewed the radiologist's reading. Social Determinants Patient?s care significantly limited by Social Determinants of Health including: Problems related to primary support group Medications Administered Discontinued Medications Generic Name Dose Route Start Last Admin Trade Name Freq PRN Reason Stop Dose Admin Rho Immune Globulin 300 mcg 07/27/23 04:54 07/27/23 06:14 Rho(D) Immune Globulin 300 Mcg Syringe IM 07/27/23 04:55 300 mcg ONCE ONE Administration Sodium Biphosphate/Sodium Phosphate 133 ml 07/27/23 04:11 07/27/23 04:21 Sodium Phosphate,[place]-Dibasic 133 Ml Enema [place] 07/27/23 04:12 133 ml ONCE ONE Administration Discharge Plan Discharge Clinical Impression: , threatened, Urinary tract infection Patient Disposition: Home, Self-Care Prescriptions: New nitrofurantoin monohyd/m-cryst [Macrobid] 100 mg capsule 100 mg PO BID 7 Days Qty: 14 0RF Rx Instructions: must administer with a meal/food No Action cyanocobalamin (vitamin B-12) 1,000 mcg tablet extended release 1,000 mcg PO DAILY calcium polycarbophil [Fiber-Lax] 625 mg tablet 625 mg PO BID Vitamin Plus Low Iron 27 mg iron- 1 mg tablet 1 tab PO DAILY Qty: 30 11RF multivitamin Tablet 1 tab PO DAILY cholecalciferol (vitamin D3) 125 mcg (5,000 unit) capsule 125 mcg PO DAILY Linzess 145 mcg capsule 145 mcg PO DAILY progesterone micronized [Prometrium] 200 mg capsule 200 mg PO BEDTIME 10 Days Qty: 30 3RF Rx Instructions: Take the pill 1 tablet a day cyclically every month from day 15-24 day 1 being the 1st day of next menstrual cycle Referrals: Mahnaz Villar MD [Primary Care Provider] - Francis Tong MD [Physician] - 08/01/23 Print Language: Yoruba
[2023-07-27] MEDS: Sodium Phosphate,Mono-Dibasic 133 ML ENEMA PR (04:21)
[2023-07-27 06:02] VITALS: BP 125/71; PULSE 72; RESP 16; O2SAT 100
[2023-07-27] MEDS: Rho(D) Immune Globulin 300 MCG SYRINGE IM (06:14)
--- NOTE | 2023-07-27 06:19 | PC.NURSE ---
Patient had a large BM after receiving Fleet enema, patient reports small amount of bright red blood with small clots from vaginal on toilet paper when wiping after BM.
[2023-07-27 08:17] VITALS: BP 108/67; PULSE 71; RESP 14; O2SAT 100
[2023-07-27 08:18] VITALS: BP 108/67; PULSE 71; RESP 14; TEMP -17.7; TEMP 0; O2SAT 100
== END 2023-07-27 08:18 | disposition home or self-care (01) ==
PROVIDERS: Emergency Provider Emergency Medicine Emergency Medical Services; PCP Internal Medicine
DX: O20.0 Threatened abortion (principal); N39.0 Urinary tract infection, site not specified; Z79.899 Other long term (current) drug therapy
CPT/HCPCS: 36415; 76801; 76817; 80053; 81001; 84702; 85025; 86900; 86901; 87086; 96372; 99285; J2790

== ENCOUNTER 2023-07-31 09:56 | Outpatient (AMB) | payer MEDICAID, SELFPAY ==
--- NOTE | 2023-07-31 09:57 | A.OFFVIS_ITS ---
Vital Signs 07/31/23 10:19 Height 5 ft Weight 152 lb BMI 29.7 BP 110/66 Intake Visit Reasons: ER follow up Day Care Aide Required: Yes Day Care Aide Language: Oracle Solutions Architect Name: Ana Maria RIOS Information Interpreted: non-clinical & clinical Accompanied by: Self / Same As Patient Allergies No Known Allergies Allergy (Verified 07/31/23 10:21) HPI Comments Details: Presenting for ER follow-up. The patient went to the emergency room on 07/26 complaining of pelvic cramping and vaginal bleeding. HCG was 10,923, blood type O negative. The patient received RhoGAM. Pelvic ultrasound showed the following: There is an intrauterine gestational sac with mean diameter of 1.0 cm, corresponding to gestational age of 5 weeks 5 days (estimated date of delivery 03/23/2024). Yolk sac is seen. No pole is present at this time. Right ovary measures 2.9 x 2.7 x 2.2 cm. There is a complex appearing cyst in the right ovary measuring up to 2.1 cm, suggestive of a corpus luteal cyst. The left ovary measures 1.8 x 1.3 x 1.3 cm and appears unremarkable. No adnexal mass is seen. Small amount of pelvic free fluid is present Since then the patient has been doing well with no complaints, no more pelvic cramping or vaginal bleeding. [facility] Medical History Hirsutism PCOS (polycystic ovarian syndrome) Cervical cancer Surgical History H/O LEEP History of lumpectomy of left breast Family History Maternal Uncle FH: kidney cancer Social History Alcohol intake: current Alcohol intake frequency: holidays/special occasions only Patient Tobacco Use Status: Never used Tobacco Substance Use Type: Marijuana Sexual orientation: Straight/Heterosexual Gender identity: Female Female Reproductive History Menstrual Age of Menarche: 9 Physical Exam Vital Signs: Last Vital Signs BP 110/66 07/31/23 10:19 BMI result Body Mass Index 29.7 Assessment & Plan Assessment & Plan (1) Early stage of : Code(s): Z34.90 - Encounter for supervision of normal , unspecified, unspecified trimester Category: Medical Plan: SAB warnings given the patient, she is to call or go to emergency room in case of pelvic cramping and or vaginal bleeding. vitamin 1 tablet p.o. q.d.. Will repeat ultrasound 11 days from last ultrasound to confirm viability. Ultrasound ordered for 07/28/2023. Instructions given to patient to schedule a follow-up ultrasound appointment in a week. All questions answered, the patient verbalized understanding Orders: Orders US OB pelvic and transvaginal 08/07/23 Z34.90 - Encounter for supervision of normal , unspecified, unspecified trimester Coding Level of Care Code Est Pt Level 3 (76046) Diagnoses Early stage of Z34.90
[2023-07-31 10:19] VITALS: BP 110/66; BMI 29.7
== END 2023-07-31 10:32 | disposition home or self-care (01) ==
LOC: HO.HWS 09:56
PROVIDERS: PCP Internal Medicine; Visit Provider Obstetrics & Gynecology
DX: Z34.90 Encounter for supervision of normal pregnancy, unspecified, unspecified trimester (principal)
CPT/HCPCS: 99213

== ENCOUNTER → 2023-07-31 09:56 | Outpatient (BNVA) | payer MEDICAID, SELFPAY | PROVIDERS: PCP Internal Medicine; Visit Provider Obstetrics & Gynecology | DX: Z34.90 Encounter for supervision of normal pregnancy, unspecified, unspecified trimester (principal) | CPT/HCPCS: 99212 ==

== ENCOUNTER 2023-08-07 11:20 | Outpatient (REF) | payer MEDICAID, SELFPAY ==
--- NOTE | ~2023-08-07 | US_ITS ---
EXAMINATION: US OBSTETRICAL ULTRASOUND CLINICAL INFORMATION: Follow-up from July 26 for viability. COMPARISON: 07/27/2023 LMP: 06/12/2023. Gestational age by maternal dates is 8 weeks 0 days. Estimated date of delivery by maternal dates is 03/18/2024. TECHNIQUE: Transabdominal scanning was performed. FINDINGS: There is a single intrauterine gestational sac with visible yolk sac, embryo/fetus, and cardiac activity. There is no significant subchorionic hemorrhage or hematoma. HR: 133 beats per minute. CRL (crown rump length): 1.04 cm (7 weeks 1 day +/- 4 days). NELLY (estimated date of delivery): 03/24/2024 +/- 4 days. MATERNAL ADNEXA: The right maternal ovary was not seen. The left maternal ovary measures 2.1 x 1.8 x 1.5 cm. There is no significant maternal adnexal mass. No maternal pelvic ascites. US/US OB <= 14 weeks fetus IMPRESSION: 1. Single intrauterine gestation with ultrasound gestational age of 7 weeks 1 day +/- 4 days. 2. Estimated date of delivery is 03/24/24 +/- 4 days. 3. No maternal adnexal mass or pelvic ascites.
== END 2023-08-07 11:21 | disposition home or self-care (01) ==
LOC: HO.US 11:20
PROVIDERS: PCP Internal Medicine; Visit Provider Obstetrics & Gynecology
DX: Z34.90 Encounter for supervision of normal pregnancy, unspecified, unspecified trimester (principal)
CPT/HCPCS: 76801

== ENCOUNTER 2023-08-09 10:57 | Outpatient (AMB) | payer MEDICAID, SELFPAY ==
[2023-08-09 11:03] VITALS: BP 110/66; BMI 29.3
--- NOTE | 2023-08-09 11:03 | MHC.OFFVIS ---
Vital Signs 08/09/23 11:03 Height 5 ft Weight 149 lb 14.629 oz BMI 29.3 BP 110/66 Intake Visit Reasons: Ultra sound follow up per Dr. tong Aircraft Loadmaster Superintendent Required: Yes Aircraft Loadmaster Superintendent Language: Profile Grinder Name: Ana Maria RIOS Information Interpreted: non-clinical & clinical Accompanied by: Mother Allergies No Known Allergies Allergy (Verified 08/09/23 11:06) Patient : Yes HPI Comments Details: Presenting for follow-up ultrasound with no complaints, no pelvic pain, bleeding or any other concerns. On vitamin 1 tablet p.o. q.d.. Pelvic ultrasound done on 08/07/2023 showed the following: IMPRESSION: 1. Single intrauterine gestation with ultrasound gestational age of 7 weeks 1 day +/- 4 days. 2. Estimated date of delivery is 03/24/24 +/- 4 days. 3. No maternal adnexal mass or pelvic ascites. [facility] Medical History Hirsutism PCOS (polycystic ovarian syndrome) Cervical cancer Surgical History H/O LEEP History of lumpectomy of left breast Family History Maternal Uncle FH: kidney cancer Social History Alcohol intake: current Alcohol intake frequency: holidays/special occasions only Patient Tobacco Use Status: Never used Tobacco Substance Use Type: Marijuana Patient : Yes Sexual orientation: Straight/Heterosexual Gender identity: Female Female Reproductive History Menstrual Age of Menarche: 9 Review of Systems Const All systems reviewed & are unremarkable except as noted in HPI and below Reports as per HPI and Reports no additional complaints GI Reports no additional complaints Reports no additional complaints Physical Exam Vital Signs: Last Vital Signs BP 110/66 08/09/23 11:03 BMI result Body Mass Index 29.3 Assessment & Plan Assessment & Plan (1) Early stage of : Code(s): Z34.90 - Encounter for supervision of normal , unspecified, unspecified trimester Category: Medical Plan: SAB warnings given to patient, she is to call or go to emergency room in case of pelvic pain/cramping, vaginal spotting or bleeding. vitamin 1 tablet p.o. q.d. Instructions given the patient to schedule initial OB visit within 1-2 weeks. The patient states that she has an appointment for visit at [facility] within a week All questions answered, the patient verbalized understanding. Coding Level of Care Code Est Pt Level 3 (61503) Diagnoses Early stage of Z34.90
== END 2023-08-09 11:59 | disposition home or self-care (01) ==
PROVIDERS: PCP Internal Medicine; Visit Provider Obstetrics & Gynecology
DX: Z3A.01 Less than 8 weeks gestation of pregnancy (principal)
CPT/HCPCS: 99213

== ENCOUNTER → 2023-08-09 10:57 | Outpatient (BNVA) | payer MEDICAID, SELFPAY | PROVIDERS: PCP Internal Medicine; Visit Provider Obstetrics & Gynecology | DX: Z34.91 Encounter for supervision of normal pregnancy, unspecified, first trimester (principal); Z3A.01 Less than 8 weeks gestation of pregnancy | CPT/HCPCS: 99212 ==

== ENCOUNTER 2024-04-18 14:43 | Outpatient (REF) | payer MEDICAID, SELFPAY ==
[2024-04-19 07:47] LABS: Syphilis Screen Nonreactive (Nonreactive)
[2024-04-19 08:06] LABS: HBsAGNum1 0.28 S/CO (0.00-0.99); HIV AB/AG Nonreactive (Nonreactive); HIV Num 1 0.06 S/CO (0.00-0.99); Hepatitis B Surface Antigen Negative (Negative); ~HepC Num1 0.15 S/CO (0.00-0.79); ~Hepatitis C Antibody Nonreactive (Nonreactive)
[2024-04-19 10:53] LABS: CT PCR NOT DETECTED (Not Detect.); NG PCR NOT DETECTED (Not Detect.)
[2024-04-19 12:25] LABS: Bacterial Vaginosis PCR NEGATIVE (Negative); Candida Group PCR NOT DETECTED (Not Detect); Candida glab krusei PCR NOT DETECTED (Not Detect); Trichomonas vaginalis PCR NOT DETECTED (Not Detect)
== END 2024-04-18 14:44 | disposition home or self-care (01) ==
LOC: HO.LNP 14:43
PROVIDERS: PCP Internal Medicine; Visit Provider Obstetrics & Gynecology
DX: N76.0 Acute vaginitis (principal); B96.89 Other specified bacterial agents as the cause of diseases classified elsewhere; R10.2 Pelvic and perineal pain
CPT/HCPCS: 81025; 81515; 86780; 86803; 87340; 87389; 87491; 87591; 99212; 99459

== ENCOUNTER 2024-04-18 14:43 | Outpatient (AMB) | payer MEDICAID, SELFPAY ==
[2024-04-18 14:49] VITALS: BMI 28.9
--- NOTE | 2024-04-18 14:49 | A.OFFVIS_ITS ---
Vital Signs 04/18/24 14:49 Height 5 ft Weight 148 lb BMI 28.9 Intake Visit Reasons: Vaginal discharge per Plow Mechanic Required: Yes Plow Mechanic Language: Support Clerk Services: Plow Mechanic Present (in person) Plow Mechanic Name: GABRIEL Cao Information Interpreted: non-clinical & clinical Customer Engagement Representative: Customer Engagement Representative Present (GABRIEL Cao) Accompanied by: Self / Same As Patient Allergies No Known Allergies Allergy (Verified 04/18/24 14:53) HPI Comments Details: Presenting complaining of vulvovaginal discharge associated with foul odor and itching in addition to pelvic pain suprapubic associated with urinary frequency and dysuria no fever or chills no nausea or vomiting PFSH Medical History Hirsutism PCOS (polycystic ovarian syndrome) Cervical cancer Surgical History H/O LEEP History of lumpectomy of left breast Family History Maternal Uncle FH: kidney cancer Social History Alcohol intake: current Alcohol intake frequency: holidays/special occasions only Patient Tobacco Use Status: Never used Tobacco Substance Use Type: Marijuana Sexual orientation: Straight/Heterosexual Gender identity: Female Female Reproductive History Menstrual Age of Menarche: 9 Review of Systems Const All systems reviewed & are unremarkable except as noted in HPI and below Physical Exam Vital Signs: BMI result Body Mass Index 28.9 General: Yes no CVA tenderness External Female Exam: normal external appearance and normal appearance of the urethra Speculum Exam - Vagina: normal appearance of the vagina, normal palpation, no lesions and no masses Speculum Exam - Cervix: normal appearance of the cervix, normal palpation, no lesions, no masses and nontender Bimanual exam- vagina & uterus: normal bimanual exam, normal palpation, uterine size normal, normal palpation, uterine shape normal, No Cervical tenderness present and non-tender Bimanual Exam- Adnexa, other: normal adnexae Back/Spine/Pelvis Back: no CVA tenderness Assessment & Plan Assessment & Plan (1) Vulvovaginitis: Comment: Mixed BV +vulvovaginitis candidiasis Code(s): N76.0 - Acute vaginitis Category: Medical Plan: GC and chlamydia cultures with BV panel taken. Per CDC recommendation, will screen for STI, HepBs Ag, HIV, RPR, Hep C Ab ordered. Will treat with Flagyl 500 mg p.o. b.i.d. x 7 days in addition to Terazol 0.8% q.h.s. for 3 days, Instructions given to the patient to refrain from sexual activity or to use condoms consistently and correctly during the BV treatment regimen, not to douch, it might increase the risk for relapse, and to call if symptoms persist or recur. (2) Pelvic pain in female: Code(s): R10.2 - Pelvic and perineal pain Category: Medical Plan: Urine dip and test done in the office were both negative. GC and chlamydia taken and pelvic ultrasound ordered. Discussed with the patient the differential diagnosis of pelvic pain including but not limited to adnexal, uterine masses, pelvic infections (PID), GI the (Irritable bowel syndrome, diverticulitis, others), musculoskeletal, myofascial pain abdominal wall , adhesions, endometriosis, psychological and others causes. Will check results and treat accordingly. All questions answered, the patient verbalized understanding. Instructed the patient to schedule an ultrasound and a follow-up appointment in 2 weeks. All questions answered, the patient verbalized understanding and agreed with the plan. Orders: Orders Hepatitis C Antibody Today B96.89 - Other specified bacterial agents as the cause of diseases classified elsewhere, N76.0 - Acute vaginitis HIV Ab/Ag Today B96.89 - Other specified bacterial agents as the cause of diseases classified elsewhere, N76.0 - Acute vaginitis US pelvic and transvaginal Today R10.2 - Pelvic and perineal pain CT NG by PCR Today N76.0 - Acute vaginitis Bacterial Vaginosis Panel Today N76.0 - Acute vaginitis Hepatitis B Surface Antigen Today B96.89 - Other specified bacterial agents as the cause of diseases classified elsewhere, N76.0 - Acute vaginitis Syphilis Screen Today B96.89 - Other specified bacterial agents as the cause of diseases classified elsewhere, N76.0 - Acute vaginitis Medications: New terconazole 0.8% 1 appful vaginal BEDTIME 20 grams 0RF 3 days metronidazole 500 mg PO BID 14 tabs 0RF 7 days Coding Level of Care Code Est Pt Level 3 (02477) Diagnoses Vulvovaginitis N76.0 Pelvic pain in female R10.2
== END 2024-04-18 15:08 | disposition home or self-care (01) ==
PROVIDERS: PCP Internal Medicine; Visit Provider Obstetrics & Gynecology
DX: N76.0 Acute vaginitis (principal); R10.2 Pelvic and perineal pain; Z32.02 Encounter for pregnancy test, result negative
CPT/HCPCS: 99213

== ENCOUNTER 2024-04-29 16:03 | Outpatient (REF) | payer MEDICAID, SELFPAY ==
[2024-04-29 16:23] LABS: MANUAL DIFF FLAG NO
[2024-04-29 17:00] LABS: Basophils Absolute Auto 0.1 X10*3/uL (0.0-0.2); Basophils Percent Auto 0.8 % (0-2); Eosinophils Absolute Auto 0.1 X10*3/uL (0.0-0.4); Eosinophils Percent Auto 1.7 % (0-4); Hematocrit 36.7 % (37.0-47.0); Imm Gran Abs Auto 0.01 X10*3/uL (0.00-0.03); Imm Gran Pct Auto 0.1 % (0.0-0.4); Lymphocytes Absolute Auto 2.5 X10*3/uL (1.2-4.9); Lymphocytes Percent Auto 33.1 % (20-40); Mean Corpuscular HGB Conc 32.7 g/dl (31.0-35.0); Mean Corpuscular Hemoglobin 26.7 pg (27.0-33.0); Mean Corpuscular Volume 81.7 fL (80.0-98.0); Mean Platelet Volume 10.3 fL (9.4-12.3); Monocytes Absolute Auto 0.7 X10*3/uL (0.1-1.2); Monocytes Percent Auto 8.8 % (2-11); Neutrophils Absolute Auto 4.2 x10*3/uL (2.0-8.3); Neutrophils Percent Auto 55.5 % (45-73); Platelet Count 368 X10*3/uL (160-400); Red Blood Count 4.49 X10*6/uL (4.20-5.50); Red Cell Distribution Width 12.7 % (11.0-16.0); White Blood Count 7.5 X10*3/uL (4.8-10.8)
[2024-04-29 17:34] LABS: Alanine Aminotransferase 37 U/L (0-31); Albumin Level 4.1 g/dL (3.5-5.0); Alkaline Phosphatase 77 U/L (39-117); Anion Gap 12 (12-20); Aspartate Amino Transferase 30 U/L (5-31); Bilirubin Total 0.2 mg/dL (0.0-1.0); Blood Urea Nitrogen 7 mg/dL (9-16); Calcium 9.4 mg/dL (8.4-10.2); Carbon Dioxide 25 mmol/L (22-29); Chloride 109 mmol/L (96-108); Estimated Glomerular Filt Rate > 60; Glucose Random 80 mg/dL (60-115); Potassium 4.2 mmol/L (3.3-5.1); Sodium 142 mmol/L (135-145); Total Protein 7.8 g/dL (6.5-8.0)
[2024-04-29 17:51] LABS: Thyroid Stimulating Hormone 2.31 uIU/mL (0.32-4.0)
== END 2024-04-29 16:04 | disposition home or self-care (01) ==
LOC: HO.LAB 16:03
PROVIDERS: PCP Internal Medicine; Visit Provider Internal Medicine
DX: I10 Essential (primary) hypertension (principal); D51.9 Vitamin B12 deficiency anemia, unspecified; N87.1 Moderate cervical dysplasia
CPT/HCPCS: 36415; 80053; 84443; 85025

== ENCOUNTER 2024-05-03 14:28 | Outpatient (REF) | payer MEDICAID, SELFPAY ==
--- NOTE | ~2024-05-03 | US_ITS ---
EXAMINATION: US PELVIS TRANSABDOMINAL AND TRANSVAGINAL HISTORY: R10.2 - Pelvic and perineal pain COMPARISON: Comparison is made with the prior examination dated 01/10/2023. TECHNIQUE: Transabdominal and endovaginal real-time 2D cruz-scale ultrasound was performed. FINDINGS: Uterus: The uterus is normal in size, measuring 9.7 x 3.5 x 4.7 cm. Myometrium has a normal echotexture. No fibroids are identified. There is a complex cystic mass with low-level internal echoes in the cervix/lower uterine segment measuring 3.8 x 2.2 x 3.0 cm, which may represent a hematoma/blood clot, possibly related to the patient's 2 months prior. Endometrium: The endometrial stripe measures 3 mm in thickness. Right ovary: The right ovary measures 2.9 x 1.8 x 2.3 cm. The right ovary is normal in size and echotexture. Left ovary: The left ovary measures 3.9 x 1.4 x 2.3 cm. The left ovary is normal in size and echotexture. A 1.8 x 1.4 x 1.7 cm hypoechoic area may represent a corpus luteum. Pelvic fluid: There is a small amount of free fluid in the cul-de-sac. US/US pelvic and transvaginal IMPRESSION: 3.8 x 2.2 x 3.0 cm complex cystic mass with low-level internal echoes in the cervix/lower uterine segment which may represent a hematoma or blood clot related to the patient's prior . Electronically signed by: Santy Haynes MD 05/03/2024 03:47 PM EDT
== END 2024-05-03 14:29 | disposition home or self-care (01) ==
LOC: HO.US 14:28
PROVIDERS: PCP Internal Medicine; Visit Provider Obstetrics & Gynecology
DX: R10.2 Pelvic and perineal pain (principal)
CPT/HCPCS: 76830; 76856

== ENCOUNTER → 2024-05-03 14:30 | Outpatient (BNV) | payer MEDICAID, SELFPAY | PROVIDERS: PCP Internal Medicine; Visit Provider Radiology Diagnostic Radiology | DX: D26.9 Other benign neoplasm of uterus, unspecified (principal); R10.2 Pelvic and perineal pain | CPT/HCPCS: 76830; 76856 ==

== ENCOUNTER 2024-07-01 13:46 | Outpatient (AMB) | payer MEDICAID, SELFPAY ==
--- NOTE | 2024-07-01 13:47 | MHC.OFFVIS ---
Vital Signs 07/01/24 13:49 Height 5 ft Weight 148 lb BMI 28.9 Intake Visit Reasons: ultrasound results Electrician Office Required: Yes Electrician Office Language: Herbologist Services: Electrician Office Present (in person) Electrician Office Name: Ana Maria RIOS Information Interpreted: non-clinical & clinical Accompanied by: Self / Same As Patient Allergies No Known Allergies Allergy (Verified 07/01/24 13:53) HPI Comments Details: Presenting for follow-up regarding her pelvic pain. The patient is doing well, pelvic pain has completely resolved. The following workup was done so far: GC/CT negative. Last visit urine test was negative. Last visit urine dip was negative. Pelvic ultrasound showed the following: Uterus: The uterus is normal in size, measuring 9.7 x 3.5 x 4.7 cm. Myometrium has a normal echotexture. No fibroids are identified. There is a complex cystic mass with low-level internal echoes in the cervix/lower uterine segment measuring 3.8 x 2.2 x 3.0 cm, which may represent a hematoma/blood clot, possibly related to the patient's 2 months prior. Endometrium: The endometrial stripe measures 3 mm in thickness. Right ovary: The right ovary measures 2.9 x 1.8 x 2.3 cm. The right ovary is normal in size and echotexture. Left ovary: The left ovary measures 3.9 x 1.4 x 2.3 cm. The left ovary is normal in size and echotexture. A 1.8 x 1.4 x 1.7 cm hypoechoic area may represent a corpus luteum. Pelvic fluid: There is a small amount of free fluid in the cul-de-sac. PFS Medical History Hirsutism PCOS (polycystic ovarian syndrome) Cervical cancer Surgical History H/O LEEP History of lumpectomy of left breast Family History Maternal Uncle FH: kidney cancer Social History Alcohol intake: current Alcohol intake frequency: holidays/special occasions only Patient Tobacco Use Status: Never used Tobacco Substance Use Type: Marijuana Sexual orientation: Straight/Heterosexual Gender identity: Female Female Reproductive History Menstrual Age of Menarche: 9 Review of Systems Const All systems reviewed & are unremarkable except as noted in HPI and below Reports as per HPI and Reports no additional complaints GI Reports no additional complaints Reports no additional complaints Physical Exam Vital Signs: BMI result Body Mass Index 28.9 Assessment & Plan Assessment & Plan (1) Pelvic pain in female: Comment: Lower uterine segment hematoma/blood clot by ultrasound Code(s): R10.2 - Pelvic and perineal pain Category: Medical Plan: Discussed with the patient the finding on ultrasound, will repeat ultrasound in the coming 2 weeks since last ultrasound was done 8 weeks ago to follow up on the previous finding. Instructions given the patient to schedule an ultrasound and a follow-up appointment. All questions answered, the patient verbalized understanding Orders: Orders US pelvic and transvaginal Today R10.2 - Pelvic and perineal pain Coding Level of Care Code Est Pt Level 3 (11728) Diagnoses Pelvic pain in female R10.2
[2024-07-01 13:49] VITALS: BMI 28.9
== END 2024-07-01 14:30 | disposition home or self-care (01) ==
LOC: HO.HWS 13:46
PROVIDERS: PCP Internal Medicine; Visit Provider Obstetrics & Gynecology
DX: R10.2 Pelvic and perineal pain (principal)
CPT/HCPCS: 99213

== ENCOUNTER → 2024-07-01 13:46 | Outpatient (BNVA) | payer MEDICAID, SELFPAY | PROVIDERS: PCP Internal Medicine; Visit Provider Obstetrics & Gynecology | DX: R10.2 Pelvic and perineal pain (principal) | CPT/HCPCS: 99212 ==

== ENCOUNTER 2024-08-02 13:48 | Outpatient (REF) | payer MEDICAID, SELFPAY ==
--- NOTE | ~2024-08-02 | US_ITS ---
CLINICAL HISTORY: R10.2 - Pelvic and perineal pain US pelvis transabdominal and transvaginal Comparison: None Findings: The uterus is normal in size, measuring 8.2 cm in length. The endometrial stripe is normal in thickness at 0.5 cm. Fluid and echogenic debris are seen within the endometrial cavity and cervical canal without internal vascular flow. Right ovary 3.6 x 2.5 x 2.1 cm. Left ovary 3.9 x 1.3 x 1.6 cm. No free fluid. IMPRESSION: 1. Fluid and echogenic debris within the endometrial cavity and cervical canal without internal vascular flow, which may represent blood products. Recommend short-term follow-up pelvic ultrasound exam in 4-6 weeks to ensure resolution. This document has been electronically signed by: Bharati Hampton on 08/03/2024 09:18:41
== END 2024-08-02 13:49 | disposition home or self-care (01) ==
LOC: HO.US 13:48
PROVIDERS: PCP Internal Medicine; Visit Provider Obstetrics & Gynecology
DX: R10.2 Pelvic and perineal pain (principal)
CPT/HCPCS: 76830; 76856

== ENCOUNTER → 2024-08-02 13:49 | Outpatient (BNV) | payer MEDICAID, SELFPAY | PROVIDERS: PCP Internal Medicine; Visit Provider Radiology Vascular & Interventional Radiology | DX: R10.2 Pelvic and perineal pain (principal) | CPT/HCPCS: 76830; 76856 ==

== ENCOUNTER 2024-08-05 10:54 | Outpatient (REF) | payer MEDICAID, SELFPAY ==
[2024-08-05 13:01] LABS: HCG Quantitative < 2 mIU/mL
== END 2024-08-05 10:55 | disposition home or self-care (01) ==
LOC: HO.LAB 10:54
PROVIDERS: PCP Internal Medicine; Visit Provider Obstetrics & Gynecology
DX: R93.5 Abnormal findings on diagnostic imaging of other abdominal regions, including retroperitoneum (principal); Z32.02 Encounter for pregnancy test, result negative
CPT/HCPCS: 36415; 81025; 84702; 99212

== ENCOUNTER 2024-08-05 10:54 | Outpatient (AMB) | payer MEDICAID, SELFPAY ==
--- NOTE | 2024-08-05 11:04 | A.OFFVIS_ITS ---
Vital Signs 08/05/24 11:06 Height 5 ft Weight 148 lb BMI 28.9 Intake Visit Reasons: ? miscarriage Water Pump Operator Required: Yes Water Pump Operator Language: Swimming Pool Service Technician Services: Water Pump Operator Present (in person) Water Pump Operator Name: Ana Maria RIOS Information Interpreted: non-clinical & clinical Medical File Clerk: Medical File Clerk Present (Ana Maria RIOS) Accompanied by: Self / Same As Patient Allergies No Known Allergies Allergy (Verified 08/05/24 11:07) Is last menstrual period known: Yes Last menstrual period: 06/22/24 Post menopausal: No Patient : No Do you need a note to return to daycare/school/sports/work: Yes (for surgery on monday) HPI Comments Details: Presenting for ultrasound follow-up with no complaints no pelvic pain, cramping or abnormal uterine bleeding or any other concerns. Pelvic ultrasound showed the following: Findings: The uterus is normal in size, measuring 8.2 cm in length. The endometrial stripe is normal in thickness at 0.5 cm. Fluid and echogenic debris are seen within the endometrial cavity and cervical canal without internal vascular flow. Right ovary 3.6 x 2.5 x 2.1 cm. Left ovary 3.9 x 1.3 x 1.6 cm. No free fluid. IMPRESSION: 1. Fluid and echogenic debris within the endometrial cavity and cervical canal without internal vascular flow, which may represent blood products. Recommend short-term follow-up pelvic ultrasound exam in 4-6 weeks to ensure resolution. The patient was seen initially in 04/18/2024 for pelvic pain: The following workup was done so far: GC/CT negative. Last visit urine dip was negative. Pelvic ultrasound in 05/14 showed the following: Uterus: The uterus is normal in size, measuring 9.7 x 3.5 x 4.7 cm. Myometrium has a normal echotexture. No fibroids are identified. There is a complex cystic mass with low-level internal echoes in the cervix/lower uterine segment measuring 3.8 x 2.2 x 3.0 cm, which may represent a hematoma/blood clot, possibly related to the patient's 2 months prior. Endometrium: The endometrial stripe measures 3 mm in thickness. Right ovary: The right ovary measures 2.9 x 1.8 x 2.3 cm. The right ovary is normal in size and echotexture. Left ovary: The left ovary measures 3.9 x 1.4 x 2.3 cm. The left ovary is normal in size and echotexture. A 1.8 x 1.4 x 1.7 cm hypoechoic area may represent a corpus luteum. Pelvic fluid: There is a small amount of free fluid in the cul-de-sac. [facility] Medical History Hirsutism PCOS (polycystic ovarian syndrome) Cervical cancer Surgical History H/O LEEP History of lumpectomy of left breast Family History Maternal Uncle FH: kidney cancer Social History Alcohol intake: current Alcohol intake frequency: holidays/special occasions only Patient Tobacco Use Status: Never used Tobacco Substance Use Type: Marijuana Sexual orientation: Straight/Heterosexual Gender identity: Female Female Reproductive History Menstrual Age of Menarche: 9 Date of last menstrual period: 06/22/24 Total pregnancies: 2 Full term: 2 Review of Systems Card Reports as per HPI and Reports no additional complaints Resp Reports as per HPI and Reports no additional complaints GI Reports as per HPI and Reports no additional complaints Reports as per HPI Physical Exam Vital Signs: BMI result Body Mass Index 28.9 Const General: cooperative, healthy appearing and comfortable Resp Effort & Inspection: normal respiratory effort Auscultation: clear to auscultation bilaterally Percussion: percussion normal Cardio Palpation: normal PMI Rate: regular rate Rhythm: regular rhythm Heart sounds: no murmurs and no rubs Peripheral pulses: Peripheral pulses 2+ throughout GI Inspection: Yes normal to inspection Palpation (GI): Soft to palpation, nontender, no guarding, not rigid and No hepatosplenomegaly present Percussion: Yes normal to percussion Auscultation: normal bowel sounds Rectal Exam - Female: deferred Results AMB Test Urine AMB Test Urine Negative Last Edit by Ana Maria Chávez CMA on 11:12 Assessment & Plan Assessment & Plan (1) Abnormal endometrial ultrasound: Code(s): R93.5 - Abnormal findings on diagnostic imaging of other abdominal regions, including retroperitoneum Category: Medical Plan: Discussed with the patient the abnormal endometrial findings on ultrasound, differential diagnosis discussed with the patient include but not limited to retained products of conception, endometrial pathology or others. Discussed with the patient options of treatment including either repeat ultrasound within 4-6 weeks versus hysteroscopy D&C possible polypectomy/myomectomy. All pros and cons, risks and benefits of each were discussed with the patient, the patient decided to proceed with a hysteroscopy D&C possible polypectomy/myomectomy. Discussed with the patient the procedure , all benefits and risks including but not limited to inability to complete the procedure , insufficient endometrial tissue for a complete evaluation of the endometrial cavity , bleeding, infection, possible need for blood transfusion with all its risk ( HIV,syphilis, Hepatitis, anaphylaxis shock, others..), injury to bladder, rectum, possible need for laparoscopy/laparotomy or hysterectomy. The patient verbalized unders tanding and signed the consent. Instructions given the patient to stay NPO after midnight the day prior to the procedure and to take only the specific medication discussed the morning of the surgical procedure, lisinopril and to schedule a 2 week postoperative appointment Orders: Orders AMB HCG Urine Test Today Z32.02 - Encounter for test, result negative HCG Quantitative Today R93.5 - Abnormal findings on diagnostic imaging of other abdominal regions, including retroperitoneum Coding Level of Care Code Est Pt Level 3 (39376) Diagnoses Abnormal endometrial ultrasound R93.5
[2024-08-05 11:06] VITALS: BMI 28.9
== END 2024-08-05 11:29 | disposition home or self-care (01) ==
LOC: HO.HWS 10:54
PROVIDERS: PCP Internal Medicine; Visit Provider Obstetrics & Gynecology
DX: Z32.02 Encounter for pregnancy test, result negative (principal); R93.5 Abnormal findings on diagnostic imaging of other abdominal regions, including retroperitoneum
CPT/HCPCS: 99213

== ENCOUNTER 2024-08-16 06:48 | Day surgery (SDC) | payer MEDICAID, SELFPAY ==
[2024-08-14 07:33] VITALS: BMI 28.9
--- NOTE | 2024-08-14 13:05 | HO.ANESPROP2 ---
Documented by User: Nilsa Villarreal NP 08/14/24 13:05 HPI - Anesthesia Eval Consult details Narrative: 34yo F for D&C Hysteroscopy possible myomectomy / polypectomy PMFSH Active Problems Active Problems: All Active Problems Abnormal endometrial ultrasound (Acute) Vulvovaginitis (Acute) Early stage of (Acute) Abnormal uterine bleeding (AUB) (Acute) Dietary counseling (Acute) Hirsutism (Acute) PCOS (polycystic ovarian syndrome) (Acute) Family planning counseling (Acute) Dysplasia of cervix, low grade (KENDRICK 1) (Acute) Preauricular sinus (Acute) Scalp abscess (Acute) Pelvic pain in female (Acute) Irregular menses (Acute) Breast pain, left (Acute) Hirsutism (Acute) Anemia (Acute) Depot contraception (Acute) Urinary urgency (Acute) Hx of iron deficiency anemia (Acute) Amenorrhea due to Depo Provera (Acute) ASCUS with positive high risk HPV cervical (Acute) KENDRICK II (cervical intraepithelial neoplasia II) (Acute) Past Medical History Medical History Hirsutism PCOS (polycystic ovarian syndrome) Cervical cancer Family History Family History Maternal Uncle FH: kidney cancer Family history of problems with anesthesia: No Surgical History Surgical History H/O LEEP History of lumpectomy of left breast History of Problems with Anesthesia: No Social History Social History Are you a primary managed care specialist to a significant other at home: No Do you presently have visiting nurse or other home services: No Alcohol intake: current Alcohol intake frequency: does not drink Patient Tobacco Use Status: Never used Tobacco Second Hand Smoke Exposure: No Use of substances other than those prescribed or required for medical reasons: No Substance Use Type: Marijuana Have you been hit, kicked, punched, or otherwise hurt by someone within the past year? If so, by whom?: No Are you DNR?: No Advance Directives: No Advance Directives Information Provided: Yes Advance Directives on File: No Patient : No : No Poor oral hygiene: No Sexual orientation: Straight/Heterosexual Gender identity: Female Meds Allergies Allergy/AdvReac Type Severity Reaction Status Date / Time No Known Allergies Allergy Verified 08/05/24 11:07 Home Medications ?Medication ?Instructions ?Recorded ?Confirmed ?Last Taken ?Type calcium polycarbophil 625 mg 625 mg PO BID 11/23/21 Unknown History tablet (Fiber-Lax) cyanocobalamin (vitamin B-12) 1,000 mcg PO DAILY 11/23/21 Unknown History 1,000 mcg tablet,extended release cholecalciferol (vitamin D3) 125 125 mcg PO DAILY 12/02/21 Unknown History mcg (5,000 unit) capsule linaclotide 145 mcg capsule 145 mcg PO DAILY 12/02/21 Unknown History (Linzess) multivitamin 1 tab PO DAILY 12/02/21 Unknown History Exam Height,Weight and Vital Signs: Height 5 ft Weight 67.132 kg Assessment and Plan Assessment Anesthesia Assessment: Chart Reviewed Final Anesthetic Review Family History of Problems with Anesthesia: No History of Problems with Anesthesia: No Documented by User: Jackelyn Ngo MD 08/16/24 07:32 PMFSH Past Medical History Medical History Hirsutism PCOS (polycystic ovarian syndrome) Cervical cancer Family History Family History Maternal Uncle FH: kidney cancer Surgical History Surgical History H/O LEEP History of lumpectomy of left breast Social History Social History Are you a primary managed care specialist to a significant other at home: No Do you presently have visiting nurse or other home services: No Alcohol intake: current Alcohol intake frequency: does not drink Patient Tobacco Use Status: Never used Tobacco Second Hand Smoke Exposure: No Use of substances other than those prescribed or required for medical reasons: No Substance Use Type: Marijuana Have you been hit, kicked, punched, or otherwise hurt by someone within the past year? If so, by whom?: No Are you DNR?: No Advance Directives: No Advance Directives Information Provided: Yes Advance Directives on File: No Patient : No : No Poor oral hygiene: No Sexual orientation: Straight/Heterosexual Gender identity: Female Meds Allergies Allergy/AdvReac Type Severity Reaction Status Date / Time No Known Allergies Allergy Verified 08/05/24 11:07 Home Medications ?Medication ?Instructions ?Recorded ?Confirmed ?Last Taken ?Type calcium polycarbophil 625 mg 625 mg PO BID 11/23/21 Unknown History tablet (Fiber-Lax) cyanocobalamin (vitamin B-12) 1,000 mcg PO DAILY 11/23/21 Unknown History 1,000 mcg tablet,extended release cholecalciferol (vitamin D3) 125 125 mcg PO DAILY 12/02/21 Unknown History mcg (5,000 unit) capsule linaclotide 145 mcg capsule 145 mcg PO DAILY 12/02/21 Unknown History (Linzess) multivitamin 1 tab PO DAILY 12/02/21 Unknown History Exam Airway Mallampati Class: II TM Dist: >3cm Neck ROM: Full Heart: rrr Lungs: cta Assessment and Plan Assessment Anesthesia Assessment: Anesthesia Plan Discussed Final Anesthetic Review NPO: Yes ASA Class: II Final Preanesthetic Review: No Changes in Pt Med Stat, Meds/Allgs Chart Reviewed, Consent Obtained/Reviewed and Anes Risks/Benef Reviewed Patient Risk: Low Procedure Risk: Low Anesthetic Plan Anesthetic Plan: GA Disposition: Standard PACU
[2024-08-16 07:08] VITALS: BP 137/72; PULSE 79; RESP 16; TEMP 36.7; O2SAT 100
[2024-08-16] MEDS: Lactated Ringers 1,000 ML 100 ML IVCONT (07:21)
--- NOTE | 2024-08-16 07:28 | MHC.SHP ---
Pre-Procedural Eval Section A - 24 Hr Update-Section A only Date of Service: 08/16/24 The patient is an INPATIENT: No Changes since office visit: No Cold of Flu in the past 2 weeks, No New Medical Problems, No Changes in Medication and No Patient answered all questions The patient has been examined within 24 hours of the surgical procedure. The History & Physical has been completed within 30 days and I have reviewed it.: Yes Section B - Complete if H&P > 30 days Chief Complaint: Abnormal findings on diagnostic imaging of other a Allergies: Allergies Allergy/AdvReac Type Severity Reaction Status Date / Time No Known Allergies Allergy Verified 08/05/24 11:07 Plan Diagnosis/Plan: Unchanged I have reviewed the history and physical and performed a pertinent physical examination on my patient. No changes have occurred unless specified. Time Spent With Patient Time: Total time managing care of this patient today ____ minutes.
[2024-08-16 08:03] LABS: HCG Quantitative < 2 mIU/mL
--- NOTE | 2024-08-16 08:50 | P.BOP_ITS ---
Brief Operative Note Date of Service: 08/16/24 Pre-op diagnosis: Abnormality in endometrial cavity by ultrasound Post-op diagnosis: same (Normal endometrial cavity) Procedure: Hysteroscopy D&C Surgeon: Francis Tong MD Anesthesia: GLMA Was an Lodging Facilities Manager used for this Procedure?: No Estimated blood loss (mL): 0 Pathology: other (Endometrial Scrapping) Condition: stable Disposition: PACU
--- NOTE | 2024-08-16 08:51 | P.OP_ITS ---
Operative Note Operative Note Date of Service: 08/16/24 Narrative: Preop Diagnosis: Abnormality in endometrial cavity by ultrasound Operation: Diagnostic Hysteroscopy, Dilatation & Curettage Post Op Diagnosis: Normal endometrial and endocervical cavity, no evidence of pathology QBL: Minimal Anesthesia: GLMA Surgeon: Francis Tong MD Certified Genetic Counselor: None Complication: None Pathology: Endometrial Scrapings Procedure: The patient was put in the dorsal lithotomy position, scrubbed, and draped in the usual manner. A sterile speculum was inserted in the patient's vagina. The anterior lip of the cervix was grasped with a single tooth tenaculum. The cervix was dilated up to 5 mm, then the scope was inserted in the patient's uterus. Inspection revealed normal endocervical & endometrial cavity with no evidence of pathology. The scope was taken out of the uterine cavity , then sharp curetting was carried on with no complications. At the end of the procedure, all instruments were taken out of the patient uterine and vaginal cavity. The single tooth tenaculum was removed and homeostasis was assured using pressure. The patient tolerated the procedure well and was transferred to the PACU in a stable condition.
[2024-08-16 08:52] VITALS: BP 130/84; PULSE 80; RESP 12; TEMP 36.8; O2SAT 100
[2024-08-16 08:57] VITALS: BP 128/75; PULSE 83; RESP 16; O2SAT 98
[2024-08-16 09:02] VITALS: BP 124/76; PULSE 64; RESP 16; O2SAT 98
[2024-08-16 09:07] VITALS: BP 130/79; PULSE 81; RESP 16; O2SAT 100
[2024-08-16 09:22] VITALS: BP 131/78; PULSE 56; RESP 16; TEMP 36.4; O2SAT 98
== END 2024-08-16 09:45 | disposition home or self-care (01) ==
PROVIDERS: Anesthesiology; PCP Internal Medicine; Visit Provider Obstetrics & Gynecology
PROC: 0UDB8ZZ Extraction of Endometrium, Via Natural or Artificial Opening Endoscopic (ICD-10-PCS; CPT 58558; principal; 2024-08-16 08:40)
DX: R93.5 Abnormal findings on diagnostic imaging of other abdominal regions, including retroperitoneum (principal); N85.01 Benign endometrial hyperplasia; Z85.41 Personal history of malignant neoplasm of cervix uteri; E28.2 Polycystic ovarian syndrome; L68.0 Hirsutism; Z79.899 Other long term (current) drug therapy; Z98.890 Other specified postprocedural states
CPT/HCPCS: 58558; 36415; 84702; 88305; J1100; J1885; J2003; J2250; J2405; J2704; J3010

== ENCOUNTER → 2024-08-16 06:48 | Outpatient (BNV) | payer MEDICAID, SELFPAY | PROVIDERS: PCP Internal Medicine; Visit Provider Obstetrics & Gynecology | DX: R93.89 Abnormal findings on diagnostic imaging of other specified body structures (principal) | CPT/HCPCS: 58558 ==

== ENCOUNTER 2024-09-03 12:49 | Outpatient (AMB) | payer MEDICAID, SELFPAY ==
[2024-09-03 13:13] VITALS: BP 128/86
--- NOTE | 2024-09-03 13:13 | MHC.OFFVIS ---
Vital Signs 09/03/24 13:13 BP 128/86 Intake Visit Reasons: Post op Healthcare Facility Administrator Required: Yes Healthcare Facility Administrator Language: Soda Fountain Operator Services: Healthcare Facility Administrator Present (in person) Healthcare Facility Administrator Name: Ana Maria RIOS Information Interpreted: non-clinical & clinical Accompanied by: Self / Same As Patient Allergies No Known Allergies Allergy (Verified 08/05/24 11:07) HPI Comments Details: The patient is presenting post hysteroscopy D&C no complaints minimal vaginal bleeding no feverishness chills or abdominal pain. Intraoperative finding showed normal endometrial cavity with no evidence of pathology. The pathology showed the following: Endometrium, curettage: Benign proliferative endometrium and benign endocervical glandular epithelium; no atypia or carcinoma PFSH Medical History Hirsutism PCOS (polycystic ovarian syndrome) Cervical cancer Surgical History H/O LEEP History of lumpectomy of left breast Family History Maternal Uncle FH: kidney cancer Social History Are you a primary intensive care unit registered nurse to a significant other at home: No Do you presently have visiting nurse or other home services: No Alcohol intake: current Alcohol intake frequency: does not drink Patient Tobacco Use Status: Never used Tobacco Second Hand Smoke Exposure: No Substance Use Type: Marijuana Sexual orientation: Straight/Heterosexual Gender identity: Female Female Reproductive History Menstrual Age of Menarche: 9 Review of Systems Const All systems reviewed & are unremarkable except as noted in HPI and below Reports as per HPI and Reports no additional complaints GI Reports no additional complaints Reports no additional complaints Physical Exam Vital Signs: Last Vital Signs BP 128/86 09/03/24 13:13 Assessment & Plan Assessment & Plan (1) Abnormal endometrial ultrasound: Code(s): R93.5 - Abnormal findings on diagnostic imaging of other abdominal regions, including retroperitoneum Category: Medical Plan: Discussed with the patient the intraoperative finding, normal endometrial cavity and the results of the pathology. Discussed with the patient the sensitivity, specificity, positive and negative predictive value, of endometrial biopsy in detecting endometrial pathology including but not limited to endometrial hyperplasia, cancer and other pathology; instructed the patient to call in case of abnormal vaginal bleeding recurs, the next step will be to proceed withfurther endometrial sampling evaluation to rule out endometrial pathology. All questions answered and the patient verbalized understanding and agreed with the plan. Coding Level of Care Code Est Pt Level 3 (56594) Diagnoses Abnormal endometrial ultrasound R93.5
== END 2024-09-03 13:49 | disposition home or self-care (01) ==
LOC: HO.HWS 12:49
PROVIDERS: PCP Internal Medicine; Visit Provider Obstetrics & Gynecology
DX: R93.5 Abnormal findings on diagnostic imaging of other abdominal regions, including retroperitoneum (principal)
CPT/HCPCS: 99213

== ENCOUNTER → 2024-09-03 12:49 | Outpatient (BNVA) | payer MEDICAID, SELFPAY | PROVIDERS: PCP Internal Medicine; Visit Provider Obstetrics & Gynecology | DX: R93.5 Abnormal findings on diagnostic imaging of other abdominal regions, including retroperitoneum (principal); Z98.890 Other specified postprocedural states | CPT/HCPCS: 99212 ==

== ENCOUNTER 2024-09-24 12:13 | Emergency (ER) | payer MEDICAID, SELFPAY ==
[2024-09-24 12:18] VITALS: BP 145/93; PULSE 120; RESP 16; TEMP 37.7; O2SAT 100; BMI 40.3
--- NOTE | 2024-09-24 12:24 | ED_ITS ---
HPI - General Adult General Chief complaint: Fever Stated complaint: Fatigue, body aches Time Seen by Provider: 09/24/24 13:15 Source: patient, RN notes reviewed and old records reviewed Mode of arrival: ambulatory Limitations: no limitations History of Present Illness ED Provider: Rj Mcmahon PA-C HPI narrative: 34 yo female presents to the ER for evaluation of subjective fevers, body aches and fatigue that started last night. 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 She denies any chest pain, shortness of breath any known sick contacts. She reports a mild sore throat, it is eating and drinking normally. She has 1 child at home who is feeling well. She denies any nausea, vomiting, diarrhea or abdominal pain. complaint: Body aches Onset (ago): day(s) (1) Relieving factors: none Exacerbating factors: none Associated symptoms: fever/chills, headaches, loss of appetite, malaise and weakness Treatments prior to arrival: none Related Data Home Medications ?Medication ?Instructions ?Recorded ?Confirmed calcium polycarbophil 625 mg 625 mg PO BID 11/23/21 tablet (Fiber-Lax) cyanocobalamin (vitamin B-12) 1,000 mcg PO DAILY 11/23 1,000 mcg tablet,extended release cholecalciferol (vitamin D3) 125 125 mcg PO DAILY 11/20 05/11 mcg (5,000 unit) capsule linaclotide 145 mcg capsule 145 mcg PO DAILY 12/02/21 (Linzess) multivitamin 1 tab PO DAILY 12/02/21 Allergies Allergy/AdvReac Type Severity Reaction Status Date / Time No Known Allergies Allergy Verified 09/24/24 12:21 Review of Systems Review of Systems: Yes all other systems are reviewed and are negative [facility] Past Medical History Medical History Hirsutism PCOS (polycystic ovarian syndrome) Cervical cancer Surgical History H/O LEEP History of lumpectomy of left breast Family History Family History Maternal Uncle FH: kidney cancer Social History Social History Are you a primary animal care supervisor to a significant other at home: No Do you presently have visiting nurse or other home services: No Alcohol intake: current Alcohol intake frequency: does not drink Patient Tobacco Use Status: Never used Tobacco Second Hand Smoke Exposure: No Substance Use Type: Marijuana Advance Directives: No Advance Directives Information Provided: Yes Sexual orientation: Straight/Heterosexual Gender identity: Female Physical Exam ED Exam Exam: Appearance: Alert. Oriented X3. No acute distress. Head: normocephalic, atraumatic. Eyes: Normal external inspection ENT: Pharynx normal. No tonsillar swelling or exudate. Neck: Normal inspection. Neck supple. CVS: Normal heart rate and rhythm. Pulses normal. Respiratory: No respiratory distress. Breath sounds normal. Skin: Skin warm and dry. Normal skin color. Normal skin turgor. No rashes. Extremities: No lower extremity edema. No joint swelling. Neuro/psych: Oriented X 3. steady gait. Normal speech and cognition. Vital Signs: Vital Signs - 24 hr 09/24/24 12:18 09/24/24 13:37 Temperature 99.8 F 99.8 F Pulse Rate 120 H 120 H Respiratory Rate 16 16 Blood Pressure 145/93 H 145/93 H Pulse Oximetry 100 100 Oxygen Delivery Method Room Air Room Air BMI result Body Mass Index 40.3 Course Course Course Narrative: This is a Rapid Medical Examination (RME) performed by Rj Mcmahon PA-C in triage. Full HPI, ROS, assessment and treatment plan per primary provider in the Main ED. 34 yo female presents to the ER for evaluation of headache, body aches, fatigue, sore throat since last night. sent to the ER from work because she was not feeling well. no chest pain, cough, SOB. no abdominal pain, N/V/D. Plan: strep and viral swab Medical Decision Making Medical Decision Making MDM Narrative: 34-year-old female presents to the ER for evaluation of subjective fevers, body aches, muscle aches, headaches and fatigue that started last night. No known sick contacts. On examination she appears well, exam is benign. Vital signs are stable, aside from some sinus tachycardia. She has no chest pain or shortness of breath. Her lungs are clear throughout. Labs show she has tested positive for COVID-19. Lungs are clear, low suspicion for pneumonia. Chest x-ray deferred today. She is saturating 100% on room air. Discussed the results with patient. We discussed supportive care. She is requesting a work note for her jobs. Patient counseled. Comfortable discharge home. Differential Diagnosis Differential Diagnoses: The differential diagnosis associated with the presentation includes strep, covid, flu, rsv, other viral syndrome, bronchitis, pneumonia, no evidence of peritonsillar abcsess or retropharyngeal abscess Lab Data MDM Lab Attestation statement: I reviewed the patient's lab results. +covid Labs: Lab Results 09/24/24 Range/Units 12:29 Influenza Type A (PCR) NEGATIVE (Negative) Influenza Type B (PCR) NEGATIVE (Negative) RSV RNA Qual (PCR) NEGATIVE (Negative) SARS-CoV-2 RNA (RT-PCR) POSITIVE A (Negative) S. pyogenes GrpA KENZIE Negative (Negative) External Record Review External record reviewed: Prior outpatient labs Tests considered The following testing was considered but not selected: cxr considered, ekg considered Prescription Management I considered prescription management with: Pain Medication, Antiviral and Antibiotic Critical Care Time Critical Care Time Critical Care Time: No Discharge Plan Discharge Clinical Impression: COVID-19 Patient Disposition: Home, Self-Care Instructions: COVID-19 (Coronavirus Disease 2019) (ED) Additional Instructions: You were found to be COVID-19 POSITIVE today. Rest. Drink plenty of fluids. Do not go out in public while you are not feeling well. Take over the counter cold/flu medications as needed for your symptoms. Take Tylenol and/or Motrin as needed for fevers and body aches. Follow up with your doctor this week. If you develop new or worsening symptoms call 911 or come back to the ER for further evaluation. Prescriptions: No Action cyanocobalamin (vitamin B-12) 1,000 mcg tablet extended release 1,000 mcg PO DAILY calcium polycarbophil [Fiber-Lax] 625 mg tablet 625 mg PO BID multivitamin Tablet 1 tab PO DAILY cholecalciferol (vitamin D3) 125 mcg (5,000 unit) capsule 125 mcg PO DAILY Linzess 145 mcg capsule 145 mcg PO DAILY Stand Alone Forms: Work/School Release Interventions: ED Discharge Assessment Last Done: 09/24/24 13:37 Discharge Date/Time: 09/24/24 13:25 Print Language: Thai
[2024-09-24 13:01] LABS: IDNOW Serial# 58CA691E; Strep A Nucleic Acid Negative (Negative)
[2024-09-24 13:14] LABS: Resp Syncy Virus RNA Qual PCR NEGATIVE (Negative); SARS COV2 PCR INHOUSE POSITIVE (Negative)
[2024-09-24 13:37] VITALS: BP 145/93; PULSE 120; RESP 16; TEMP 37.7; O2SAT 100
== END 2024-09-24 13:25 | disposition home or self-care (01) ==
LOC: HO.ED 13:28
PROVIDERS: Physician Assistant; Emergency Provider Emergency Medicine; PCP Internal Medicine
DX: U07.1 COVID-19 (principal); R50.9 Fever, unspecified; R53.83 Other fatigue
CPT/HCPCS: 87637; 87651; 99282; 99283

== ENCOUNTER 2024-10-29 19:30 | Emergency (ER) | payer MEDICAID, SELFPAY ==
[2024-10-29 20:50] VITALS: BP 136/74; PULSE 86; RESP 16; TEMP 36.5; O2SAT 100; BMI 38.5
[2024-10-29 22:20] LABS: IDNOW Serial# 6674DD1D; Strep A Nucleic Acid Negative (Negative)
[2024-10-29 22:52] LABS: Resp Syncy Virus RNA Qual PCR NEGATIVE (Negative); SARS COV2 PCR INHOUSE NEGATIVE (Negative)
--- NOTE | 2024-10-29 23:08 | ED.URI ---
HPI - URI/Sore Throat General Chief Complaint: Upper Respiratory Symptoms Stated Complaint: all over not feeling good Time Seen by Provider: 10/29/24 23:08 History of Present Illness ED Provider: BLAYNE AGEE Narrative: 34 F presents with cough congestion sore throat fevers since Monday. Sick contact at home, son. test was requested this is negative. Related Data Home Medications ?Medication ?Instructions ?Recorded ?Confirmed calcium polycarbophil 625 mg 625 mg PO BID 11/23/21 tablet (Fiber-Lax) cyanocobalamin (vitamin B-12) 1,000 mcg PO DAILY 11/23/21 1,000 mcg tablet,extended release cholecalciferol (vitamin D3) 125 125 mcg PO DAILY 12/02/21 mcg (5,000 unit) capsule linaclotide 145 mcg capsule 145 mcg PO DAILY 12/02/21 (Linzess) multivitamin 1 tab PO DAILY 12/02/21 Allergies Allergy/AdvReac Type Severity Reaction Status Date / Time No Known Allergies Allergy Verified 10/29/24 20:54 [facility] Past Medical History Medical History Hirsutism PCOS (polycystic ovarian syndrome) Cervical cancer Surgical History H/O LEEP History of lumpectomy of left breast Family History Family History Maternal Uncle FH: kidney cancer Social History Social History Are you a primary manager medicare to a significant other at home: No Do you presently have visiting nurse or other home services: No Alcohol intake: current Alcohol intake frequency: does not drink Patient Tobacco Use Status: Never used Tobacco Second Hand Smoke Exposure: No Substance Use Type: Marijuana Advance Directives: No Advance Directives Information Provided: No Sexual orientation: Straight/Heterosexual Gender identity: Female Physical Exam Exam: Exam: EXAM: Gen: Alert, awake, well appearing, well hydrated. Head: Atraumatic Eyes: Anicteric, Normal conjunctiva. ENT: Moist mucosa, no pallor. ? Neck: Supple. Skin: ?No observable rash or bruising on exposed or examined skin Respiratory: Breathing comfortably, No distress.Clear to auscultation bilaterally, symmetric chest expansion, No wheeze, rales, ronchi. Cardiovascular: Regular rate and rhythm. No murmurs or rub. Well perfused periphery, warm extremities. No edema. ? Abdominal: No focal tenderness. Soft, no objective distension. No palpable masses or obvious organomegaly. ?No guarding, no rebound tenderness or other peritoneal findings. : No flank tenderness. Neuro: Alert. Gross movement of all extremities intact. ? Psych: Calm. Cooperative. MSK: No grossly visible deformity. Vital signs: See flowsheet Vital Signs: Vital Signs: Last Vital Signs Temp 97.7 F 10/29/24 23:43 Pulse 86 10/29/24 23:43 Resp 16 10/29/24 23:43 BP 136/74 10/29/24 23:43 Pulse Ox 100 10/29/24 23:43 BMI result Body Mass Index 38.5 Medical Decision Making Medical Decision Making MDM Narrative: Medical Decision Making: This is a 34-year-old female with upper respiratory symptoms cough not distressed looks well. Likely URI low risk non reassuring vital signs Preliminary Favored Differential Diagnosis: Viral URI sinusitis cough, bronchitis, COVID among additional considered etiologies Testing Interpreted Independently: ?See below for details Radiology or Lab testing Results Reviewed: ?See below for details Consults: ?See below for details Independent Historians/External Chart Reviews: ?See below for details Social Determinants of Health Impacting MDM/Planning: ?See below for details Lab Data MDM Lab Attestation statement: I reviewed the patient's lab results. Labs: Lab Results 10/29/24 Range/Units 21:59 Beta HCG, Quant < 2 mIU/mL COVID-19 (ROSHAN) Cancelled COVID-19 Clin Com Cancelled Influenza Type A (PCR) NEGATIVE (Negative) Influenza Type B (PCR) NEGATIVE (Negative) RSV RNA Qual (PCR) NEGATIVE (Negative) SARS-CoV-2 RNA (RT-PCR) NEGATIVE (Negative) S. pyogenes GrpA KENZIE Negative (Negative) Discharge Plan Discharge Clinical Impression: Acute upper respiratory infection Patient Disposition: Home, Self-Care Instructions: Upper Respiratory Infection (ED) Additional Instructions: Today in the emergency department you were evaluated for upper respiratory symptoms. Your test was negative. You had a swab test for flu, COVID, RSV, strep throat which were all negative. Prescriptions: No Action cyanocobalamin (vitamin B-12) 1,000 mcg tablet extended release 1,000 mcg PO DAILY calcium polycarbophil [Fiber-Lax] 625 mg tablet 625 mg PO BID multivitamin Tablet 1 tab PO DAILY cholecalciferol (vitamin D3) 125 mcg (5,000 unit) capsule 125 mcg PO DAILY Linzess 145 mcg capsule 145 mcg PO DAILY Stand Alone Forms: Work/School Release Interventions: ED Discharge Assessment Last Done: 10/29/24 23:43 Discharge Date/Time: 10/29/24 23:43 Print Language: Japanese
[2024-10-29 23:43] VITALS: BP 136/74; PULSE 86; RESP 16; TEMP 36.5; O2SAT 100
== END 2024-10-29 23:43 | disposition home or self-care (01) ==
PROVIDERS: Emergency Provider Emergency Medicine; PCP Internal Medicine
DX: J06.9 Acute upper respiratory infection, unspecified (principal); Z03.818 Encounter for observation for suspected exposure to other biological agents ruled out; Z79.899 Other long term (current) drug therapy
CPT/HCPCS: 36415; 84702; 87637; 87651; 99282; 99283

== ENCOUNTER 2024-11-21 14:25 | Outpatient (AMB) | payer MEDICAID, SELFPAY ==
--- NOTE | 2024-11-21 14:32 | MHC.OFFVIS ---
Vital Signs 11/21/24 14:39 Height 5 ft Weight 201 lb BMI 39.3 BP 112/72 Intake Visit Reasons: annual /cotest Intake Note: Patient has concerns of no menstrual since before procedure back in July Receiving Dock Checker Required: Yes Receiving Dock Checker Language: Ct Technologist Services: Receiving Dock Checker Present ([employer]) Security Dispatcher: Security Dispatcher Present (Lacey) Accompanied by: Self / Same As Patient Allergies No Known Allergies Allergy (Verified 10/29/24 20:54) Is last menstrual period known: Yes Last menstrual period: 07/25/24 Post menopausal: No Patient : No HPI Comments Details: Presenting for annual exam. Has been having amenorrhea for the last three-months Last Pap/HPV was in 06/13 was negative, this was preceded by KENDRICK 1 in 05/10 [facility] Medical History Hirsutism PCOS (polycystic ovarian syndrome) Cervical cancer Surgical History H/O LEEP History of lumpectomy of left breast Family History Maternal Uncle FH: kidney cancer Social History Are you a primary prompt care rn to a significant other at home: No Do you presently have visiting nurse or other home services: No Alcohol intake: current Alcohol intake frequency: does not drink Patient Tobacco Use Status: Never used Tobacco Second Hand Smoke Exposure: No Substance Use Type: Marijuana Sexual orientation: Straight/Heterosexual Gender identity: Female Female Reproductive History Menstrual Age of Menarche: 9 Date of last menstrual period: 07/25/24 control method: none Total pregnancies: 1 Full term: 1 Date of last pap smear: 06/08/23 (negative pap smear, negative hpv ) Review of Systems Const All systems reviewed & are unremarkable except as noted in HPI and below Card Reports as per HPI Resp Reports as per HPI GI Reports as per HPI and Reports no additional complaints Reports as per HPI Physical Exam Vital Signs: Last Vital Signs BP 112/72 11/21/24 14:39 BMI result Body Mass Index 39.3 Const General: cooperative, healthy appearing and comfortable Chest Chest palpation & inspection: normal inspection of the chest and normal palpation of entire chest wall Breast/axilla inspection: normal inspection of the breasts and normal inspection of the axillae Breast/axilla palpation: normal palpation of the breasts, normal palpation of the axillae and no axillary lymphadenopathy Resp Effort & Inspection: normal respiratory effort Auscultation: clear to auscultation bilaterally Percussion: percussion normal Cardio Palpation: normal PMI Rate: regular rate Rhythm: regular rhythm Heart sounds: no murmurs and no rubs Peripheral pulses: Peripheral pulses 2+ throughout GI Inspection: Yes normal to inspection Palpation (GI): Soft to palpation, nontender, no guarding, not rigid and No hepatosplenomegaly present Percussion: Yes normal to percussion Auscultation: normal bowel sounds Rectal Exam - Female: deferred General: Yes bladder normal to palpation External Female Exam: No lesion Speculum Exam - Vagina: normal appearance of the vagina, normal palpation, normal vaginal discharge and not erythematous Speculum Exam - Cervix: normal appearance of the cervix and normal palpation Bimanual exam- vagina & uterus: normal bimanual exam, normal palpation, uterine size normal, bladder normal to palpation, consistency normal and normal palpation Bimanual Exam- Adnexa, other: normal adnexae, no masses and no tenderness Assessment & Plan Assessment & Plan (1) Well woman exam: Code(s): Z01.419 - Encounter for gynecological examination (general) (routine) without abnormal findings Category: Medical Plan: Cotesting done. Counseled the patient about the recommended dietary allowance of 1000 mg of Calcium & 600 IU of vitamin D. The patient was instructed to perform monthly self-breast exams and to schedule an annual exam in a year; All questions answered and the patient verbalized understanding. Instructed the patient to schedule annual exam in a year (2) Amenorrhea: Code(s): N91.2 - Amenorrhea, unspecified Category: Medical Plan: Discussed with the patient the possible causes of amenorrhea including but not limited to anovulation, thyroid and prolactin disorders, , end organ problems (uterine synechiae), medication side effects and others. The workup includes to start with UPT if negative this will be followed by a progesterone withdrawal test x 5 days if + bleeding this will be followed by TSH, PRL if negative then the diagnosis is anovulation. if no bleeding occurs will treat with Premarin x 21 days followed by Provera if no bleeding occurs will rule out Premature ovarian failure with FSH/LH Medications: New progesterone micronized (Prometrium) Take the pill 1 tablet a day 200 mg PO BEDTIME 5 caps 0RF 5 days Coding Level of Care Code Est Pt Level 3 (86406) Diagnoses Well woman exam Z01.419 Amenorrhea N91.2
[2024-11-21 14:39] VITALS: BP 112/72; BMI 39.3
== END 2024-11-21 15:05 | disposition home or self-care (01) ==
LOC: HO.HWS 14:25
PROVIDERS: PCP Internal Medicine; Visit Provider Obstetrics & Gynecology
DX: Z01.419 Encounter for gynecological examination (general) (routine) without abnormal findings (principal); N91.2 Amenorrhea, unspecified
CPT/HCPCS: 99213

== ENCOUNTER 2024-11-21 14:25 | Outpatient (REF) | payer MEDICAID, SELFPAY | END 2024-11-21 14:26 | disposition home or self-care (01) | LOC: HO.LNP 14:25 | PROVIDERS: PCP Internal Medicine; Visit Provider Obstetrics & Gynecology | DX: Z01.419 Encounter for gynecological examination (general) (routine) without abnormal findings (principal); N91.2 Amenorrhea, unspecified; Z11.51 Encounter for screening for human papillomavirus (HPV) | CPT/HCPCS: 87626; 88175; 99212 ==

== ENCOUNTER 2025-01-13 11:38 | Outpatient (AMB) | payer MEDICAID, SELFPAY ==
--- NOTE | 2025-01-13 11:38 | MHC.OFFVIS ---
Intake Visit Reasons: Med follow up [employer] Hazmat Tanker Driver Required: Yes [employer] Hazmat Tanker Driver Language: Correctional Food Service Supervisor Services: [employer] Hazmat Tanker Driver Present (in person) [employer] Hazmat Tanker Driver Name: Ana Maria RIOS Information Interpreted: non-clinical & clinical Allergies No Known Allergies Allergy (Verified 01/13/25 11:39) HPI Comments Details: The patient is scheduled for a telehealth visit, she took 5 days of Provera , this was followed by a positive withdrawal test. PFSH Medical History Hirsutism PCOS (polycystic ovarian syndrome) Cervical cancer Surgical History H/O LEEP History of lumpectomy of left breast Family History Maternal Uncle FH: kidney cancer Social History Are you a primary lpn care manager to a significant other at home: No Do you presently have visiting nurse or other home services: No Alcohol intake: current Alcohol intake frequency: does not drink Patient Tobacco Use Status: Never used Tobacco Second Hand Smoke Exposure: No Substance Use Type: Marijuana Sexual orientation: Straight/Heterosexual Gender identity: Female Female Reproductive History Menstrual Age of Menarche: 9 Telehealth Telehealth Telehealth Platform: [employer] Location of provider rendering services: practice address Location of patient: address on file Patient Identification confirmed using: Name, : Yes Telehealth method: video Patient verbally consented to treatment: Yes Patient verbally consented to billing insurance company: Yes Patient informed of any privacy concerns related to visit: Yes Minutes spent on Phone/Video with Pt.: 4 Assessment & Plan Assessment & Plan (1) Amenorrhea: Comment: + withdrawal test Code(s): N91.2 - Amenorrhea, unspecified Category: Medical Plan: TSH prolactin ordered, instructions given to patient to schedule a follow-up appointment to be all questions answered, the patient verbalized understanding. I spent a total of 20 minutes reviewing the chart, talking to the patient via video and documenting in the medical record. Orders: Orders TSH reflex Free T4 Today N91.2 - Amenorrhea, unspecified Prolactin Today N91.2 - Amenorrhea, unspecified Coding Level of Care Code Tele Est Pt Level 3 (95629) Diagnoses Amenorrhea N91.2
== END 2025-01-13 12:06 | disposition home or self-care (01) ==
LOC: HO.HWS 11:38
PROVIDERS: PCP Internal Medicine; Visit Provider Obstetrics & Gynecology
DX: N91.2 Amenorrhea, unspecified (principal)
CPT/HCPCS: 99213

== ENCOUNTER 2025-01-27 13:24 | Outpatient (REF) | payer MEDICAID, SELFPAY | END 2025-01-27 13:25 | disposition home or self-care (01) | LOC: HO.LAB 13:24 | PROVIDERS: PCP Internal Medicine; Visit Provider Obstetrics & Gynecology | DX: N91.2 Amenorrhea, unspecified (principal) | CPT/HCPCS: 36415; 84146; 84443 ==

== ENCOUNTER 2025-02-04 14:30 | Outpatient (AMB) | payer MEDICAID, SELFPAY ==
[2025-02-04 14:40] VITALS: BP 124/82; BMI 39.3
--- NOTE | 2025-02-04 14:40 | A.OFFVIS_ITS ---
Vital Signs 02/04/25 14:40 Height 5 ft Weight 201 lb BMI 39.3 BP 124/82 Intake Visit Reasons: Labs results Convention Planner Required: Yes Convention Planner Language: Intelligence Research Specialist Services: Convention Planner Present (in person) Convention Planner Name: Ana Maria RIOS Information Interpreted: non-clinical & clinical Accompanied by: Self / Same As Patient Allergies No Known Allergies Allergy (Verified 02/04/25 14:50) HPI Comments Details: The patient is presenting for follow-up after a positive withdrawal test for amenorrhea, TSH, prolactin with a [facility] Medical History Hirsutism PCOS (polycystic ovarian syndrome) Cervical cancer Surgical History H/O LEEP History of lumpectomy of left breast Family History Maternal Uncle FH: kidney cancer Social History Are you a primary care mgr to a significant other at home: No Do you presently have visiting nurse or other home services: No Alcohol intake: current Alcohol intake frequency: does not drink Patient Tobacco Use Status: Never used Tobacco Second Hand Smoke Exposure: No Substance Use Type: Marijuana Sexual orientation: Straight/Heterosexual Gender identity: Female Female Reproductive History Menstrual Age of Menarche: 9 Review of Systems Const All systems reviewed & are unremarkable except as noted in HPI and below Reports as per HPI and Reports no additional complaints GI Reports no additional complaints Reports no additional complaints Physical Exam Vital Signs: Last Vital Signs BP 124/82 02/04/25 14:40 BMI result Body Mass Index 39.3 Assessment & Plan Assessment & Plan (1) Amenorrhea: Comment: + withdrawal test Code(s): N91.2 - Amenorrhea, unspecified Category: Medical Plan: Discussed with the patient the results of her test, normal TSH and prolactin with a positive progesterone withdrawal test, diagnosis is an ovulation. Options of treatment discussed with the patient included but not limited to control pills or cyclic Prometrium. All pros and cons, risks and benefits of each were discussed with the patient, the patient decided to proceed with cyclic Prometrium 200 mg p.o. q.d. day 15-24 cyclicly. so a more detailed discussion re: Prometrium treatment including mechanism of action, benefits (regular menses, endometrial protection form unopposed estrogen and reduction in the risk of endometrial hyperplasia and/or cancer ...), risks (Thrombosis, mood changes, weight gain, breast soreness, ? increased breast ca, others). Instructions were given to use a back- up method for contraception since this is not a method control, take the medication 1 tablet daily starting day 15- 24 and to schedule a 3 months follow-up appointment; patient verbalized understanding and agreed with the plan. Medications: New progesterone micronized (Prometrium) Take the pill 1 tablet a day cyclically every month from day 15-24 day 1 being the 1st day of next menstrual cycle 200 mg PO BEDTIME 30 caps 0RF 90 days Coding Level of Care Code Est Pt Level 3 (83715) Diagnoses Amenorrhea N91.2
== END 2025-02-04 15:20 | disposition home or self-care (01) ==
LOC: HO.HWS 14:30
PROVIDERS: PCP Internal Medicine; Visit Provider Obstetrics & Gynecology
DX: N91.2 Amenorrhea, unspecified (principal)
CPT/HCPCS: 99213

== ENCOUNTER → 2025-02-04 14:30 | Outpatient (BNVA) | payer MEDICAID, SELFPAY | PROVIDERS: PCP Internal Medicine; Visit Provider Obstetrics & Gynecology | DX: N91.2 Amenorrhea, unspecified (principal) | CPT/HCPCS: 99212 ==